=== PATIENT | male | born 1975 | race Caucasian/White ===

== ENCOUNTER 2016-09-28 21:47 | Emergency (ER) | payer OTHER ==
[2016-09-28 22:16] VITALS: BMI 38.0
[2016-09-28 22:20] VITALS: BP 134/90; PULSE 85; RESP 18; TEMP 98.1; O2SAT 96
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
[2016-09-28] MEDS ORDERED: Lidocaine 1% Inj (20ml) IJ STA (22:27)
[2016-09-28] MEDS ORDERED: Tmp-Smz 800 mg-160 mg DS Tab PO STA (22:27)
== END 2016-09-28 23:21 | disposition home or self-care (01) ==
LOC: ED 21:47
DX: L03.011 Cellulitis of right finger (principal)

== ENCOUNTER 2017-04-23 14:24 | Emergency (ER) | payer OTHER ==
[2017-04-23 14:24] VITALS: BMI 38.0
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
[2017-04-23 14:37] VITALS: TEMP 98.7
[2017-04-23 14:50] LABS: BASO # 0.01 K/mm3 (0.0-2.0); BASO % 0.1 % (0.0-3.0); EOS # 0.1 (0.0-0.7); EOS % 1.9 % (1.5-5.0); GRAN # 4.9 (1.4-6.5); GRAN % 65.5 % (50.0-68.0); HEMATOCRIT 45.9 % (42.0-52.0); MEAN CELL VOLUME 88.1 fl (80.0-105.0); MEAN CORPUSCULAR HEMOGLOBIN 31.1 pg (25.0-35.0); MEAN CORPUSCULAR HGB CONC 35.3 g/dl (31.0-37.0); MEAN PLATELET VOLUME 10.9 fl (7.0-11.0); MONO # 0.5 (0.1-0.6); MONO % 6.5 % (1.0-6.0); RED CELL DISTRIBUTION WIDTH 12.6 % (11.5-14.5); WHITE BLOOD COUNT 7.5 10^3/ul (4.5-11.0)
[2017-04-23 15:08] LABS: ALB/GLOB RATIO 1.3 (1.1-1.8); ALKALINE PHOSPHATASE 91 U/L (38-126); ALT/SGPT 54 U/L (7-56); AST/SGOT 23 U/L (17-59); BILIRUBIN,TOTAL 0.7 mg/dL (0.2-1.3); BLOOD UREA NITROGEN 15 mg/dL (7-21); CALCIUM 9.9 mg/dL (8.4-10.5); CARBON DIOXIDE 30 mmol/L (21-33); CHLORIDE 99 mmol/L (98-107); GFR AFRICAN-AMERICAN > 60; GLUCOSE,RANDOM 335 mg/dL (70-110); MAGNESIUM 1.5 mg/dL (1.7-2.2); POTASSIUM 4.1 mmol/L (3.6-5.0); SODIUM 138 mmol/L (132-148); TOTAL PROTEIN 7.7 g/dL (5.8-8.3)
--- NOTE | 2017-04-23 15:11 | RAD ---
HISTORY: cp COMPARISON: 06/18/2015 FINDINGS: LUNGS: No active pulmonary disease. PLEURA: No significant pleural effusion identified, no pneumothorax apparent. CARDIOVASCULAR: Normal. OSSEOUS STRUCTURES: No significant abnormalities. VISUALIZED UPPER ABDOMEN: Normal. OTHER FINDINGS: None. IMPRESSION: No active disease.
[2017-04-23 15:17] LABS: D DIMER < 200 ng/mL (0-243); INR 0.99 (0.93-1.08); PARTIAL THROMBOPLASTIN TIME 31.9 Seconds (25.1-36.5)
[2017-04-23 15:33] LABS: TROPONIN I < 0.01 ng/mL
[2017-04-23] MEDS ORDERED: Magnesium Sulfate 1 gm in D5W 1 GM/100 ML BAG IVPB ONE (17:05)
[2017-04-23 19:32] VITALS: BP 118/74; PULSE 74; RESP 18; O2SAT 98
--- NOTE | 2017-04-24 19:19 | CARD ---
APPROVED REPORT EKG Measurement Heart [id number] <Conclusion> Sinus rhythm with fusion complexes Otherwise normal ECG
== END 2017-04-23 19:10 | disposition home or self-care (01) ==
LOC: ED 14:24
DX: R07.9 Chest pain, unspecified (principal); E11.9 Type 2 diabetes mellitus without complications; I48.91 Unspecified atrial fibrillation; Z87.891 Personal history of nicotine dependence
CPT/HCPCS: 71010; 80053; 82550; 83615; 83735; 83880; 84484; 85025; 85378; 85610; 85730; 93005; 96365; 99285; J3475

== ENCOUNTER 2017-09-02 17:00 | Observation (INO) | payer OTHER ==
[2017-09-02 17:00] VITALS: BMI 38.0
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
--- NOTE | 2017-09-02 17:50 | RAD ---
HISTORY: chest pain, sob COMPARISON: 04/23/2017 FINDINGS: LUNGS: No active pulmonary disease. PLEURA: No significant pleural effusion identified, no pneumothorax apparent. CARDIOVASCULAR: Normal. OSSEOUS STRUCTURES: No significant abnormalities. VISUALIZED UPPER ABDOMEN: Normal. OTHER FINDINGS: None. IMPRESSION: No active disease.
[2017-09-02 17:53] LABS: VENOUS BLOOD GAS BASE EXCESS 0.9 mmol/L (0.0-2.0); VENOUS BLOOD GAS PO2 38 mm/Hg (30-55); VENOUS BLOOD PH 7.34 (7.32-7.43)
[2017-09-02 17:54] LABS: EOS # 0.1 (0.0-0.7); EOS % 0.6 % (1.5-5.0); GRAN # 7.32 (1.4-6.5); HEMOGLOBIN 16.1 g/dL (14.0-18.0); LYMPH # 0.6 (1.2-3.4); LYMPH % 6.9 % (22.0-35.0); MEAN CELL VOLUME 86.3 fl (80.0-105.0); MEAN CORPUSCULAR HEMOGLOBIN 30.2 pg (25.0-35.0); MEAN PLATELET VOLUME 10.6 fl (7.0-11.0); MONO # 0.2 (0.1-0.6); MONO % 2.5 % (1.0-6.0); RBC 5.33 10^6/uL (3.5-6.1); WHITE BLOOD COUNT 8.1 10^3/ul (4.5-11.0)
[2017-09-02 18:06] LABS: INR 1.06 (0.93-1.08); PARTIAL THROMBOPLASTIN TIME 29.1 Seconds (25.1-36.5); PROTHROMBIN TIME 12.1 SECONDS (9.4-12.5)
[2017-09-02 18:08] LABS: ALB/GLOB RATIO 1.3 (1.1-1.8); ALBUMIN 4.4 g/dL (3.0-4.8); ALT/SGPT 57 U/L (7-56); AST/SGOT 28 U/L (17-59); BLOOD UREA NITROGEN 18 mg/dL (7-21); CALCIUM 8.8 mg/dL (8.4-10.5); GFR AFRICAN-AMERICAN > 60; GFR NON-AFRICAN AMERICAN > 60
[2017-09-02 18:14] LABS: TROPONIN I < 0.01 ng/mL
[2017-09-02] MEDS ORDERED: Magnesium Oxide 400 mg Tab UD PO STA (18:15)
[2017-09-02 18:25] LABS: B-TYPE NATRIURETIC PEPTIDE < 11.1 pg/mL (0-450)
[2017-09-02] MEDS ORDERED: Sodium Chloride 0.9% 1,000 ML IV STA (19:05)
[2017-09-02] MEDS ORDERED: Sodium Chloride 0.45% 1,000 ML IV SCH (21:00)
[2017-09-03] MEDS: Insulin Reg-HIGH-Coverage SC SCH ×3 (01:05→12:56)
[2017-09-03 04:15] VITALS: O2SAT 95
[2017-09-03 06:56] LABS: PH,URINE 5.5 (4.7-8.0); URINE BILIRUBIN NEGATIVE (NEGATIVE); URINE BLOOD MODERATE (NEGATIVE); URINE GLUCOSE (UA) >=1000 mg/dL (NEGATIVE); URINE LEUKOCYTE ESTERASE NEGATIVE Leu/uL (NEGATIVE); URINE PROTEIN NEGATIVE mg/dL (<30 mg/dL); URINE UROBILINOGEN 0.2 E.U./dL (<1 E.U./dL)
[2017-09-03 06:58] LABS: URINE APPEARANCE CLOUDY (CLEAR); URINE COLOR YELLOW (YELLOW)
[2017-09-03 07:30] LABS: URINE BACTERIA FEW (NEG); URINE WBC 0 - 2 /hpf (0-6)
[2017-09-03 07:40] LABS: HEMOGLOBIN 14.8 g/dL (14.0-18.0); MEAN CELL VOLUME 85.7 fl (80.0-105.0); MEAN CORPUSCULAR HEMOGLOBIN 29.5 pg (25.0-35.0); MEAN CORPUSCULAR HGB CONC 34.4 g/dl (31.0-37.0); MEAN PLATELET VOLUME 10.7 fl (7.0-11.0); RBC 5.02 10^6/uL (3.5-6.1); RED CELL DISTRIBUTION WIDTH 13.2 % (11.5-14.5); WHITE BLOOD COUNT 5.3 10^3/ul (4.5-11.0)
[2017-09-03 07:59] LABS: TROPONIN I < 0.01 ng/mL
[2017-09-03 08:08] LABS: ALB/GLOB RATIO 1.3 (1.1-1.8); ALBUMIN 3.7 g/dL (3.0-4.8); ALT/SGPT 50 U/L (7-56); AST/SGOT 22 U/L (17-59); BLOOD UREA NITROGEN 14 mg/dL (7-21); CALCIUM 8.2 mg/dL (8.4-10.5); GFR AFRICAN-AMERICAN > 60; GFR NON-AFRICAN AMERICAN > 60
--- NOTE | 2017-09-03 08:37 | HP ---
HISTORY OF PRESENT ILLNESS: He comes in to the emergency room with a history of sharp right chest pain and the blood sugar was 265. It worsens and it goes away. He has had palpitations. He has also had nauseousness. He cannot eat. He has been drinking some now. He is having palpitations, shortness of breath, lightheadedness and nauseousness. No smoking. No drinking. He did have a past history of substance abuse, 17 years ago. PAST MEDICAL HISTORY: Includes atrial fibrillation with Effient, diabetes, hypertension, kidney stones. He had substance abuse on 02/12/2002. Appendectomy, 8 years old. FAMILY HISTORY: No known family history. SOCIAL HISTORY: He is a former smoker. No alcohol. Quit drugs, used heroin a long time ago. ALLERGIES: NO KNOWN DRUG ALLERGIES. MEDICATIONS: He took Zestril and . REVIEW OF SYSTEMS: No acute vision or hearing changes. No fevers. No night sweats. There is shortness of breath. There is chest pain. There is palpitation. No cough. He has nauseousness. No abdominal pain, diarrhea or vomiting. There is lightheadedness. No skin lesions. PHYSICAL EXAMINATION: VITAL SIGNS: He has a 99.8 temp, 104 pulse, 18 respiratory rate, 118/67 blood pressure and 98% O2 sat on room air. GENERAL: He is alert and oriented x3, a little bit lethargic, sedated, now feeling low. Blood sugar is 249. HEENT: His head is atraumatic, normocephalic. Extraocular muscles are intact. Pupils equal, reactive to light and accommodation. Throat is moist. NECK: Supple. Thyroid midline. No palpable appreciable lymphadenopathy. HEART: Regular rate. Normal S1 and S2. LUNGS: Decreased breath sounds, but clear to auscultation bilaterally. ABDOMEN: Soft, nontender. Positive bowel sounds. EXTREMITIES: Have no edema. NEUROLOGIC: GCS is 15. Cranial nerves II through XII grossly intact. Speech is normal. SKIN: Warm and dry. PSYCHIATRIC: Alert and oriented x3. LABORATORY DATA: He had 8.1 white count, 16.1 hemoglobin, 46 hematocrit with 249 platelets. 1.06 INR. Lactate is 1.5, . He has a 136 sodium, potassium 3.9, BUN 18, creatinine 0.8, GFR is greater than 60, sugar is 249, calcium is 8.8, magnesium 1.5, total bili is 0.8. AST is 28, ALT is , alk phos is 89, lactate dehydrogenase is 387, total creatine kinase is 82. Troponin I is less than 0.01. BNP is less than Total protein 7.6, albumin is 4.4, globulin is 3.2. Chest x-ray was clear. IMPRESSION AND PLAN: He has a consult with Cardiology, he will be on IV fluids. He will be on insulin coverage. He will put back on his glyburide and Zestril. He has a heart-healthy diet. I am also going to give him some Zofran get some nauseousness. We will check his troponins x2 more and in the next 24 hours. He is on observation status and he is here for shortness of breath and chest pain. Noe Rojas DO MTDKira
--- NOTE | 2017-09-03 08:42 | CARD ---
APPROVED REPORT EKG Measurement Heart [id number] <Conclusion> Sinus tachycardia Nonspecific T wave abnormality
[2017-09-03 12:58] VITALS: BP 101/61; PULSE 89
[2017-09-03 13:23] VITALS: RESP 20; TEMP 98.6
--- NOTE | 2017-09-03 15:33 | CON ---
DATE: 09/03/2017 CARDIOLOGY CONSULTATION HISTORY OF PRESENT ILLNESS: The patient is chest pain free now. The patient presented with right-sided pleuritic like sharp chest discomfort, which has resolved. The patient suffers from diabetes mellitus and hypertension. No previous cardiac history is noted. SOCIAL HISTORY: The patient does not smoke. FAMILY HISTORY: He has no family history for CAD. REVIEW OF SYSTEMS: A 14-point review of systems is reviewed. No cardiac symptomatology is noted. PHYSICAL EXAMINATION: VITAL SIGNS: Blood pressure is 118/74, the heart rates in the 90s. NECK: Negative JVD. LUNGS: Without rales. HEART: Reveals S1, S2. EXTREMITIES: Without edema. EKG is unremarkable. LABORATORY DATA: Troponins are negative x2. Glucose is 233. Hemoglobin is 14.8. IMPRESSION: 1. Atypical chest pain. 2. No evidence for acute coronary syndrome. 3. Diabetes mellitus. 4. Hypertension. PLAN: Given these findings, from a cardiac perspective, the patient can be discharged. Given his cardiac risk factors, we will arrange for an outpatient stress test later on this week, which the patient is agreeable to. Karlos Christian MD
--- NOTE | 2017-09-04 06:51 | DS ---
CHIEF COMPLAINT: I saw Alba resting comfortably this morning. There is no chest pain or shortness of breath, and he slept well. He has no complaints. He is eating well. PHYSICAL EXAMINATION: VITAL SIGNS: Temperature , 94 pulse, 118/74 blood pressure, 18 respiratory rate, 95% to 100% O2 sat on room air. HEENT: Head is atraumatic and normocephalic. HEART: Regular rate. LUNGS: Clear to auscultation. ABDOMEN: Soft, obese, nontender. EXTREMITIES: No edema. MEDICATIONS: He is currently on insulin coverage, IV fluids, Zestril and Zofran. LABORATORY DATA: He has 5.3 white count, 14.8 hemoglobin, 43 hematocrit with 224 platelets. INR is 1.06. Lactate of 1.5, pH is 7.34. VBG, O2 is 70.6. Sodium 137, potassium of 3.5. I gave him a potassium tab to take today. BUN is 40, creatinine 0.7. GFR is greater than 60. Old blood sugars are 233 and 217. Calcium is 8.2, total bili is 0.7, AST is 22, ALT is 50, alk phos is 78, with troponin of less than 0.01, and total protein 6.7. ASSESSMENT AND PLAN: I discussed with Dr. Christian, the air antisubmarine officer. He can be discharged. He is going to follow up in the office with Dr. Rojas. He might be set up for an outpatient stress test with Dr. Christian to see what he wants to do. We will continue with the glyburide and lisinopril. I am going to increase the glyburide to 5 mg since his blood sugar is still high. I discussed the good diet with him, low sugar, low salt. Lose some weight and exercise. We will see how he does. I would like to see him in the office in a week. He was here for chest pain and observation. Noe Rojas DO D 09/03/2017 8:23:33 MTDD
== END 2017-09-03 17:52 | disposition home or self-care (01) ==
LOC: ED 17:00 → ERH 18:19 → 2RSO 09-03 00:29
PROVIDERS: ADMIT Family Medicine; ATTEND Family Medicine
DX: R07.89 Other chest pain (principal); E11.9 Type 2 diabetes mellitus without complications; I10 Essential (primary) hypertension; I48.91 Unspecified atrial fibrillation; Z87.442 Personal history of urinary calculi; Z87.891 Personal history of nicotine dependence
CPT/HCPCS: 36415; 71045; 80053; 81001; 82550; 82803; 82948; 83615; 83735; 83880; 84484; 85025; 85027; 85610; 85730; 93005; 99285; G0378; J7030; J7040

== ENCOUNTER 2018-09-20 00:41 | Inpatient (IN) | payer SELFPAY ==
[2018-09-20 00:48] VITALS: BMI 39.5
--- NOTE | 2018-09-20 00:49 | ED PDOC ---
Arrival/HPI - General Historian: Patient - History of Present Illness Narrative History of Present Illness (Text): 09/20/18 00:49 Patient is a 42 yo male with obesity, hypertension, T2DM, and paroxysmal Afib who presents with heart palpitations. Patient states that he was lying down on his couch around 11 PM when he suddenly felt his heart start to race. He states he has associated shortness of breath. He denies chest pain, diaphoresis, and nausea. He reports that similar episodes have happened to him in the past, about once per year. He says that he is only supposed to be taking a baby aspirin and glyburide. He adamantly denies alcohol and drug use and states he has been sober since 2001. Time/Duration: 1-3 hours Symptom Onset: Sudden Symptom Course: Unchanged <Ellen Olvera - Last Filed: 09/20/18 03:11> <Raleigh Michelle DO - Last Filed: 09/20/18 05:59> - General Chief Complaint: Chest Pain Time Seen by Provider: 09/20/18 00:49 Past Medical History - Provider Review Nursing Documentation Reviewed: Yes Primary Care Provider: Noe Rojas - Past History Past History: No Previous - Infectious Disease Hx of Infectious Diseases: None - Tetanus Immunization Tetanus Immunization: Unknown - Cardiac Hx Atrial Fibrillation: Yes - Pulmonary Hx Respiratory Disorders: No Hx Pneumonia: No (DENIES) - Neurological Hx Neurological Disorder: No - HEENT Hx HEENT Disorder: No - Renal Hx Renal Disorder: No Hx Kidney Stones: Yes - Endocrine/Metabolic Hx Endocrine Disorders: Yes Hx Diabetes Mellitus Type 2: Yes - Hematological/Oncological Hx Blood Disorders: No - Integumentary Hx Dermatological Disorder: No - Musculoskeletal/Rheumatological Hx Musculoskeletal Disorders: No Hx Falls: No - Gastrointestinal Hx Gastrointestinal Disorders: No - Genitourinary/Gynecological Hx Genitourinary Disorders: No - Psychiatric Hx Psychophysiologic Disorder: No Hx Substance Use: Yes (HEROIN, 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)) Other/Comment: SUBSTANCE ABUSE (SOBER FOR 17 YRS) - Past Surgical History Past Surgical History: Non-Contributing - Surgical History Hx Appendectomy: Yes - Anesthesia Hx Anesthesia: Yes Hx Anesthesia Reactions: No Hx Malignant Hyperthermia: No - Suicidal Assessment Feels Threatened In Home Enviroment: No <Ellen Olvera - Last Filed: 09/20/18 03:11> Family/Social History - Physician Review Nursing Documentation Reviewed: Yes Family/Social History: Unknown Family HX Smoking Status: Former Smoker Hx Alcohol Use: Yes (QUIT 17 YRS AGO) Hx Substance Use: Yes (HEROIN, 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)) Substance used: heroin Hx Substance Use Treatment: No <Ellen Olvera - Last Filed: 09/20/18 03:11> Allergies/Home Meds <Ellen Olvera - Last Filed: 09/20/18 03:11> <Raleigh Michelle DO - Last Filed: 09/20/18 05:59> Allergies/Adverse Reactions: Allergies No Known Allergies Allergy (Verified 09/20/18 00:48) Home Medications: Home Meds Medication Instructions Recorded Confirmed Lisinopril [Zestril] 2.5 mg PO DAILY 12/03/15 09/05/17 glyBURIDE [Micronase] 5 mg PO BID 04/23/17 09/05/17 Meclizine [Meclizine*] 25 mg PO BID PRN 09/05/17 09/05/17 Review of Systems - Review of Systems Constitutional: absent: Fatigue, Fevers Eyes: absent: Vision Changes ENT: absent: Hearing Changes Respiratory: SOB. absent: Cough Cardiovascular: Palpitations. absent: Chest Pain, Edema Gastrointestinal: absent: Abdominal Pain, Nausea, Vomiting Genitourinary Male: absent: Dysuria, Hematuria Musculoskeletal: absent: Arthralgias Skin: absent: Rash, Pruritis, Skin Lesions Neurological: absent: Headache, Dizziness, Focal Weakness Endocrine: absent: Diaphoresis Hemo/Lymphatic: absent: Adenopathy <Ellen Olvera - Last Filed: 09/20/18 03:11> Physical Exam Vital Signs Reviewed: Yes Temperature: Afebrile Blood Pressure: Normal Pulse: Tachycardic Respiratory Rate: Normal Appearance: Positive for: Non-Toxic Pain Distress: None Mental Status: Positive for: Alert and Oriented X 3 - Systems Exam Head: Present: Atraumatic, Normocephalic Pupils: Present: PERRL Extroacular Muscles: Present: EOMI Conjunctiva: Present: Normal Mouth: Present: Moist Mucous Membranes Respiratory/Chest: Present: Clear to Auscultation, Good Air Exchange. No: Respi ratory Distress, Accessory Muscle Use Cardiovascular: Present: Irregular Rhythm, Tachycardic Abdomen: No: Tenderness, Distention Lower Extremity: Present: Normal Inspection. No: Edema Neurological: Present: GCS=15, CN II-XII Intact, Speech Normal Skin: Present: Warm, Dry. No: Diaphoretic Psychiatric: Present: Alert, Oriented x 3, Normal Insight, Normal Concentration <Ellen Olvera - Last Filed: 09/20/18 03:11> Vital Signs Temp Pulse Resp BP Pulse Ox 09/20/18 02:56 141 H 105/53 L 09/20/18 02:39 133 H 116/63 09/20/18 01:25 96 H 18 112/55 L 97 09/20/18 01:22 98 H 18 97 09/20/18 01:13 147 H 96/68 L 09/20/18 00:48 97.8 F 145 H 18 107/67 95 <Raleigh Michelle DO - Last Filed: 09/20/18 05:59> Medical Decision Making ED Course and Treatment: 09/20/18 02:33 Patient briefly clinically improved following IV Cardizem but now again with feeling of palpitations/heart racing. 09/20/18 02:[address] Rojas who accepts patient to his service- admission to telemetry. Re-evaluation Time: 02:33 Reassessment Condition: Unchanged - Lab Interpretations I have reviewed the lab results: Yes Interpretation: No clinic. lab abnormalty - RAD Interpretation Narrative RAD Interpretations (Text): 09/20/18 02:32 CXR- unremarkable Radiology Orders: CXR [employer] Lifeguard: ED Physician - EKG Interpretation EKG Interpretation (Text): 09/20/18 01:15 Afib RVR Type: 12 lead EKG Comparison: Different from prev. EKG - Medication Orders Current Medication Orders: 09/20/18 01:15 NS 1L bolus Cardizem 20 mg IVP 09/20/18 02:29 Cardizem 30 mg PO <Ellen Olvera - Last Filed: 09/20/18 03:11> - Lab Interpretations Lab Results: Troponin I < 0.01 ng/mL 09/20/18 00:50 NT-Pro-B Natriuret Pep 24.3 pg/mL (0-450) 09/20/18 00:50 Total Bilirubin 0.6 mg/dL (0.2-1.3) 09/20/18 00:50 AST 29 U/L (17-59) 09/20/18 00:50 ALT 40 U/L (7-56) 09/20/18 00:50 Alkaline Phosphatase 102 U/L (38-126) 09/20/18 00:50 Total Protein 8.0 g/dL (5.8-8.3) 09/20/18 00:50 Albumin 4.2 g/dL (3.0-4.8) 09/20/18 00:50 Globulin 3.8 gm/dL 09/20/18 00:50 Albumin/Globulin Ratio 1.1 (1.1-1.8) 09/20/18 00:50 Urine Color Light yellow (YELLOW) 09/20/18 02:20 Urine Appearance Clear (CLEAR) 09/20/18 02:20 Urine pH 6.0 (4.7-8.0) 09/20/18 02:20 Ur Specific Wiseman 1.015 (1.005-1.035) 09/20/18 02:20 Urine Protein Negative mg/dL (<30 mg/dL) 09/20/18 02:20 Urine Glucose (UA) Negative mg/dL (NEGATIVE) 09/20/18 02:20 Urine Ketones Trace mg/dL (NEGATIVE) H 09/20/18 02:20 Urine Blood Small (NEGATIVE) H 09/20/18 02:20 Urine Nitrate Negative (NEGATIVE) 09/20/18 02:20 Urine Bilirubin Negative (NEGATIVE) 09/20/18 02:20 Urine Urobilinogen 0.2 E.U./dL (<1 E.U./dL) 09/20/18 02:20 Ur Leukocyte Esterase Negative Devonte/uL (NEGATIVE) 09/20/18 02:20 Urine RBC 1 - 3 /hpf (0-2) H 09/20/18 02:20 Urine WBC None /hpf (0-6) 09/20/18 02:20 Ur Epithelial Cells None /hpf (0-5) 09/20/18 02:20 Urine Bacteria Few /hpf (NONE) 09/20/18 02:20 - RAD Interpretation Radiology Orders: 09/20/18 01:06 CHEST PORTABLE [RAD] Stat - Medication Orders Current Medication Orders: Dextrose (Dextrose 50% Inj) 0 ml IV STAT PRN; Protocol PRN Reason: Hypoglycemia Protocol Enoxaparin Sodium (Lovenox) 120 mg SC Q12H ANYA; Protocol Last Admin: 09/20/18 05:27 Dose: 120 mg Subcutaneous Administrations Document 09/20/18 05:27 OO (Rec: 09/20/18 05:27 OO [facility] [id number] Injection Site MAR Injection Site Right Abdomen Charges for Administration # of Subcutaneous Administrations 1 diltiaZEM IVPB 100mg in NS (Cardizem 100mg In Ns) 100 mls @ 5 mls/hr IV .Q20H PRN; Protocol PRN Reason: TITRATE PER MD ORDER Last Admin: 09/20/18 03:40 Dose: 10 mls/hr Comments: titrated per md order eMAR Start Stop Document 09/20/18 03:40 LAC (Rec: 09/20/18 03:50 LAC [id number]) Intravenous Solution Start Date 09/20/18 Start Time 03:40 Dextrose (Dextrose 5% In Water 1000 Ml) 1,000 mls @ 0 mls/hr IV .Q0M PRN; Protocol PRN Reason: Hypoglycemia Protocol Insulin Human Regular (Humulin R Med) 0 units SC ACHS ANYA; Protocol Discontinued Medications Diltiazem HCl (Cardizem) 20 mg IVP STAT STA Stop: 09/20/18 01:14 Last Admin: 09/20/18 01:13 Dose: 20 mg IVP Administration Document 09/20/18 01:13 AD (Rec: 09/20/18 01:33 AD [facility] [id number] Charges for Administration # of IVP Administrations 1 MAR Pulse and Blood Pressure Document 09/20/18 01:13 AD (Rec: 09/20/18 01:33 AD [id number] Pulse Pulse Rate (60-90) 147 Blood Pressure Blood Pressure (100/60-150/90) 96/68 Diltiazem HCl (Cardizem) 30 mg PO STAT STA Stop: 09/20/18 02:14 Last Admin: 09/20/18 02:20 Dose: 30 mg Sodium Chloride (Sodium Chloride 0.9%) 1,000 mls @ 999 mls/hr IV .Q1H1M STA Stop: 09/20/18 02:06 Last Admin: 09/20/18 01:06 Dose: 999 mls/hr eMAR Start Stop Document 09/20/18 01:06 AD (Rec: 09/20/18 01:32 AD [id number] Intravenous Solution Start Date 09/20/18 Start Time 01:06 Sodium Chloride (Sodium Chloride 0.9%) 1,000 mls @ 999 mls/hr IV .Q1H1M STA Stop: 09/20/18 04:48 Last Admin: 09/20/18 03:48 Dose: 999 mls/hr eMAR Start Stop Document 09/20/18 03:48 AD (Rec: 09/20/18 03:57 AD [id number] Intravenous Solution Start Date 09/20/18 Start Time 03:48 <Raleigh Michelle DO - Last Filed: 09/20/18 05:59> - PA / [employer]CTOR / Resident Statement WALESKA has reviewed & agrees with the documentation as recorded. WALESKA has examined the patient and agrees with the treatment plan. <Raleigh Michelle DO - Last Filed: 09/20/18 05:59> Disposition/Present on Arrival - Present on Arrival Any Indicators Present on Arrival: No History of DVT/PE: No History of Uncontrolled Diabetes: No Urinary Catheter: No History Surgical Site Infection Following: None - Disposition Have Diagnosis and Disposition been Completed?: Yes Disposition Time: 02:54 Patient Plan: Admission, Telemetry <Ellen Olvera - Last Filed: 09/20/18 03:11> - Disposition Disposition Time: 02:30 <Raleigh Michelle DO - Last Filed: 09/20/18 05:59> - Disposition Diagnosis: Atrial fibrillation with RVR Disposition: HOSPITALIZED Condition: [facility] ED Critical Care Documentation - Critical Care Total Time (mins): 60 Documented critical care: time excludes all time spent performing seperately billable procedures. <Raleigh Michelle DO - Last Filed: 09/20/18 05:59>
[2018-09-20] MEDS ORDERED: Sodium Chloride 0.9% 1,000 ML IV STA ×2 (01:06→03:48)
[2018-09-20 01:35] LABS: FREE T4 1.08 ng/dL (0.78-2.19)
[2018-09-20 01:47] LABS: BASO # 0.02 K/mm3 (0.0-2.0); BASO % 0.2 % (0.0-3.0); EOS # 0.2 (0.0-0.7); EOS % 2.2 % (1.5-5.0); HEMOGLOBIN 15.7 g/dL (14.0-18.0); LYMPH # 2.5 (1.2-3.4); LYMPH % 26.2 % (22.0-35.0); MEAN CELL VOLUME 87.9 fl (80.0-105.0); MEAN CORPUSCULAR HEMOGLOBIN 29.6 pg (25.0-35.0); MEAN CORPUSCULAR HGB CONC 33.7 g/dl (31.0-37.0); MEAN PLATELET VOLUME 11.1 fl (7.0-11.0); MONO # 0.8 (0.1-0.6); MONO % 8.8 % (1.0-6.0); RBC 5.3 10^6/uL (3.5-6.1); RED CELL DISTRIBUTION WIDTH 13.1 % (11.5-14.5); WHITE BLOOD COUNT 9.4 10^3/uL (4.5-11.0)
[2018-09-20 01:50] LABS: T3 1.26 ng/mL (0.97-1.69)
[2018-09-20 02:10] LABS: B-TYPE NATRIURETIC PEPTIDE 24.3 pg/mL (0-450); TROPONIN I < 0.01 ng/mL
[2018-09-20 02:26] LABS: ALB/GLOB RATIO 1.1 (1.1-1.8); ALBUMIN 4.2 g/dL (3.0-4.8); ALT/SGPT 40 U/L (7-56); AST/SGOT 29 U/L (17-59); BLOOD UREA NITROGEN 18 mg/dL (7-21); CALCIUM 9.2 mg/dL (8.4-10.5); GFR NON-AFRICAN AMERICAN > 60
[2018-09-20 02:44] LABS: URINE BILIRUBIN NEGATIVE (NEGATIVE); URINE BLOOD SMALL (NEGATIVE); URINE GLUCOSE (UA) NEGATIVE (NEGATIVE); URINE LEUKOCYTE ESTERASE NEGATIVE Leu/uL (NEGATIVE); URINE PROTEIN NEGATIVE mg/dL (<30 mg/dL); URINE UROBILINOGEN 0.2 E.U./dL (<1 E.U./dL)
[2018-09-20] MEDS: diltiaZEM IVPB 100mg in NS 100 ML IV PRN ×3 (02:53→09:53)
[2018-09-20 03:03] LABS: URINE APPEARANCE CLEAR (CLEAR); URINE COLOR LIGHT YELLOW (YELLOW)
[2018-09-20 03:10] LABS: BARBITURATES, UR NEGATIVE (NEGATIVE); BENZODIAZEPINES, UR NEGATIVE (NEGATIVE); OPIATES, UR NEGATIVE (NEGATIVE); PHENCYCLIDINE, UR NEGATIVE (NEGATIVE)
[2018-09-20 03:51] LABS: URINE BACTERIA FEW /hpf
[2018-09-20] MEDS ORDERED: Dextrose 50% SYRINGE Inj (50 ml) IV PRN (04:11)
--- NOTE | 2018-09-20 04:13 | CP.PCM.HP ---
<Tyler Deshpande - Last Filed: 09/20/18 07:04> History of Present Illness - History of Present Illness History of Present Illness: ICU consult note Chief complaint: Shortness of breath and palpitations HPI: Patient is a 42 year old male with a past medical history of atrial fibrillation, DM, hypertension who presents with complains of shortness of breath and palpitations. Patient states these symptoms started right before he was about to fall asleep. Patient states at the time he was laying in bed relaxing then suddenly had similar symptoms he had in the past when he was in atrial fibrillation. As per patient he hadn't had these symptoms in over a year and as a result has decided to no loner take medications. States although he doesn't take prescribed medications he takes aspirin daily. Denies abdominal pain, nausea, vomiting, diarrhea, headache, chest pain. PMD: Dr. Rojas Community Service Director: Dr. 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 wheneh was [age] years old but since then has not Past medical history: DM, hypertension, atrial fibrillation Medications: in the past patient was on effient and zestril Family history: not significant Present on Admission - Present on Admission Any Indicators Present on Admission: No Review of Systems - Review of Systems All systems: reviewed and no additional remarkable complaints except (as stated in HPI) Past Patient History - Infectious Disease Hx of Infectious Diseases: None - Tetanus Immunizations Tetanus Immunization: Unknown - Past Medical History & Family History Past Medical History?: Yes - Past Social History Smoking Status: Former Smoker - CARDIAC Hx Atrial Fibrillation: Yes - PULMONARY Hx Respiratory Disorders: No Hx Pneumonia: No (DENIES) - NEUROLOGICAL Hx Neurological Disorder: No - HEENT Hx HEENT Problems: No - RENAL Hx Chronic Kidney Disease: No Hx Kidney Stones: Yes - ENDOCRINE/METABOLIC Hx Endocrine Disorders: Yes Hx Diabetes Mellitus Type 2: Yes - HEMATOLOGICAL/ONCOLOGICAL Hx Blood Disorders: No - INTEGUMENTARY Hx Dermatological Problems: No - MUSCULOSKELETAL/RHEUMATOLOGICAL Hx Musculoskeletal Disorders: No Hx Falls: No - GASTROINTESTINAL Hx Gastrointestinal Disorders: No - GENITOURINARY/GYNECOLOGICAL Hx Genitourinary Disorders: No - PSYCHIATRIC Hx Psychophysiologic Disorder: No Hx Substance Use: Yes (HEROIN, 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)) Other/Comment: SUBSTANCE ABUSE (SOBER FOR 17 YRS) - SURGICAL HISTORY Hx Appendectomy: Yes - ANESTHESIA Hx Anesthesia: Yes Hx Anesthesia Reactions: No Hx Malignant Hyperthermia: No Meds Allergies/Adverse Reactions: Allergies Allergy/AdvReac Type Severity Reaction Status Date / Time No Known Allergies Allergy Verified 09/20/18 00:48 Physical Exam - Constitutional Appears: Non-toxic - Head Exam Head Exam: ATRAUMATIC, NORMAL INSPECTION, NORMOCEPHALIC - Eye Exam Eye Exam: EOMI, Normal appearance - ENT Exam ENT Exam: Mucous Membranes Moist - Neck Exam Neck exam: Positive for: Normal Inspection - Respiratory Exam Respiratory Exam: Clear to Auscultation Bilateral, NORMAL BREATHING PATTERN - Cardiovascular Exam Cardiovascular Exam: Tachycardia, Irregular Rhythm - GI/Abdominal Exam GI & Abdominal Exam: Distended, Normal Bowel Sounds, Soft - Extremities Exam Extremities exam: Positive for: normal inspection. Negative for: pedal edema - Back Exam Back exam: NORMAL INSPECTION - Neurological Exam Neurological exam: Alert, CN II-XII Intact, Oriented x3 - Psychiatric Exam Psychiatric exam: Normal Affect, Normal Mood - Skin Skin Exam: Normal Color, Warm Results - Vital Signs Recent Vital Signs: Last Vital Signs Temp 97.8 F 09/20/18 00:48 Pulse 141 H 09/20/18 02:56 Resp 18 09/20/18 01:25 BP 105/53 L 09/20/18 02:56 Pulse Ox 97 09/20/18 01:25 - Labs Result Diagrams: 09/20/18 00:50 09/20/18 00:50 Labs: Laboratory Results - last 24 hr 09/20/18 09/20/18 09/20/18 00:50 00:50 00:50 WBC 9.4 RBC 5.30 Hgb 15.7 Hct 46.6 MCV 87.9 MCH 29.6 MCHC 33.7 RDW 13.1 Plt Count 268 MPV 11.1 H Neut % (Auto) 62.6 Lymph % (Auto) 26.2 Benzie % (Auto) 8.8 H Eos % (Auto) 2.2 Baso % (Auto) 0.2 Lymph # (Auto) 2.5 Benzie # (Auto) 0.8 H Eos # (Auto) 0.2 Baso # (Auto) 0.02 Absolute Neuts (auto) 5.89 Sodium 137 Potassium 4.0 Chloride 98 Carbon Dioxide 28 Anion Gap 16 BUN 18 Creatinine 1.0 Est GFR ( Amer) > 60 Est GFR (Non-Af Amer) > 60 Random Glucose 309 H* D Calcium 9.2 Magnesium 1.7 Total Bilirubin 0.6 AST 29 ALT 40 Alkaline Phosphatase 102 Lactate Dehydrogenase 551 Total Creatine Kinase 221 Troponin I < 0.01 NT-Pro-B Natriuret Pep 24.3 Total Protein 8.0 Albumin 4.2 Globulin 3.8 Albumin/Globulin Ratio 1.1 Free T4 1.08 Total T3 1.26 TSH 3rd Generation 7.16 H Urine Color Urine Appearance Urine pH Ur Specific [place] Urine Protein Urine Glucose (UA) Urine Ketones Urine Blood Urine Nitrate Urine Bilirubin Urine Urobilinogen Ur Leukocyte Esterase Urine RBC Urine WBC Ur Epithelial Cells Urine Bacteria Urine Opiates Screen Urine Methadone Screen Ur Barbiturates Screen Ur Phencyclidine Scrn Ur Amphetamines Screen U Benzodiazepines Scrn U Oth Cocaine Metabols U Cannabinoids Screen 09/20/18 09/20/18 02:20 02:20 WBC RBC Hgb Hct MCV MCH MCHC RDW Plt Count MPV Neut % (Auto) Lymph % (Auto) Benzie % (Auto) Eos % (Auto) Baso % (Auto) Lymph # (Auto) Benzie # (Auto) Eos # (Auto) Baso # (Auto) Absolute Neuts (auto) Sodium Potassium Chloride Carbon Dioxide Anion Gap BUN Creatinine Est GFR ( Amer) Est GFR (Non-Af Amer) Random Glucose Calcium Magnesium Total Bilirubin AST ALT Alkaline Phosphatase Lactate Dehydrogenase Total Creatine Kinase Troponin I NT-Pro-B Natriuret Pep Total Protein Albumin Globulin Albumin/Globulin Ratio Free T4 Total T3 TSH 3rd Generation Urine Color Light yellow Urine Appearance Clear Urine pH 6.0 Ur Specific [place] 1.015 Urine Protein Negative Urine Glucose (UA) Negative Urine Ketones Trace H Urine Blood Small H Urine Nitrate Negative Urine Bilirubin Negative Urine Urobilinogen 0.2 Ur Leukocyte Esterase Negative Urine RBC 1 - 3 H Urine WBC None Ur Epithelial Cells None Urine Bacteria Few Urine Opiates Screen Negative Urine Methadone Screen Negative Ur Barbiturates Screen Negative Ur Phencyclidine Scrn Negative Ur Amphetamines Screen Negative U Benzodiazepines Scrn Negative U Oth Cocaine Metabols Negative U Cannabinoids Screen Negative Assessment & Plan - Assessment and Plan (Free Text) Assessment: Patient is a 42 year old male with a past medical history of atrial fibrillation, DM, hypertension who presents with complains of shortness of breath and palpitations. Plan: Neurological -AAO x 3 Cardiovascular -Maintain MAP >65 -Cardizem drip -Lovenox 120 mg q12h -Troponin negative x 1, continue to trend along with EKGs Pulmonary -Maintain O2 sat >95% Endocrine -Insulin SC-Medium -HgA1C -perioperative educator -Maintain normothermia Renal -Maintain euvolemia -Replete electrolytes as needed Hematological -Lovenox for anticoagulation <[email or web address] - Last Filed: 09/20/18 21:56> Results - Vital Signs Recent Vital Signs: Last Vital Signs Temp 97.9 F 09/20/18 19:40 Pulse 79 09/20/18 21:06 Resp 18 09/20/18 19:40 BP 106/71 09/20/18 21:06 Pulse Ox 96 09/20/18 19:40 - Labs Result Diagrams: 09/20/18 00:50 09/20/18 00:50 Labs: Laboratory Results - last 24 hr 09/20/18 09/20/18 09/20/18 00:50 00:50 00:50 WBC 9.4 RBC 5.30 Hgb 15.7 Hct 46.6 MCV 87.9 MCH 29.6 MCHC 33.7 RDW 13.1 Plt Count 268 MPV 11.1 H Neut % (Auto) 62.6 Lymph % (Auto) 26.2 Benzie % (Auto) 8.8 H Eos % (Auto) 2.2 Baso % (Auto) 0.2 Lymph # (Auto) 2.5 Benzie # (Auto) 0.8 H Eos # (Auto) 0.2 Baso # (Auto) 0.02 Absolute Neuts (auto) 5.89 PT INR APTT D-Dimer, Quantitative Sodium 137 Potassium 4.0 Chloride 98 Carbon Dioxide 28 Anion Gap 16 BUN 18 Creatinine 1.0 Est GFR ( Amer) > 60 Est GFR (Non-Af Amer) > 60 POC Glucose (mg/dL) Random Glucose 309 H* D Hemoglobin A1c Calcium 9.2 Magnesium 1.7 Total Bilirubin 0.6 AST 29 ALT 40 Alkaline Phosphatase 102 Lactate Dehydrogenase 551 Total Creatine Kinase 221 Troponin I < 0.01 NT-Pro-B Natriuret Pep 24.3 Total Protein 8.0 Albumin 4.2 Globulin 3.8 Albumin/Globulin Ratio 1.1 Free T4 1.08 Total T3 1.26 TSH 3rd Generation 7.16 H Urine Color Urine Appearance Urine pH Ur Specific [place] Urine Protein Urine Glucose (UA) Urine Ketones Urine Blood Urine Nitrate Urine Bilirubin Urine Urobilinogen Ur Leukocyte Esterase Urine RBC Urine WBC Ur Epithelial Cells Urine Bacteria Urine Opiates Screen Urine Methadone Screen Ur Barbiturates Screen Ur Phencyclidine Scrn Ur Amphetamines Screen U Benzodiazepines Scrn U Oth Cocaine Metabols U Cannabinoids Screen 09/20/18 09/20/18 09/20/18 02:20 02:20 03:00 WBC RBC Hgb Hct MCV MCH MCHC RDW Plt Count MPV Neut % (Auto) Lymph % (Auto) Benzie % (Auto) Eos % (Auto) Baso % (Auto) Lymph # (Auto) Benzie # (Auto) Eos # (Auto) Baso # (Auto) Absolute Neuts (auto) PT INR APTT D-Dimer, Quantitative Sodium Potassium Chloride Carbon Dioxide Anion Gap BUN Creatinine Est GFR ( Amer) Est GFR (Non-Af Amer) POC Glucose (mg/dL) Random Glucose Hemoglobin A1c 11.1 H Calcium Magnesium Total Bilirubin AST ALT Alkaline Phosphatase Lactate Dehydrogenase Total Creatine Kinase Troponin I NT-Pro-B Natriuret Pep Total Protein Albumin Globulin Albumin/Globulin Ratio Free T4 Total T3 TSH 3rd Generation Urine Color Light yellow Urine Appearance Clear Urine pH 6.0 Ur Specific [place] 1.015 Urine Protein Negative Urine Glucose (UA) Negative Urine Ketones Trace H Urine Blood Small H Urine Nitrate Negative Urine Bilirubin Negative Urine Urobilinogen 0.2 Ur Leukocyte Esterase Negative Urine RBC 1 - 3 H Urine WBC None Ur Epithelial Cells None Urine Bacteria Few Urine Opiates Screen Negative Urine Methadone Screen Negative Ur Barbiturates Screen Negative Ur Phencyclidine Scrn Negative Ur Amphetamines Screen Negative U Benzodiazepines Scrn Negative U Oth Cocaine Metabols Negative U Cannabinoids Screen Negative 09/20/18 09/20/18 09/20/18 05:12 07:19 08:00 WBC RBC Hgb Hct MCV MCH MCHC RDW Plt Count MPV Neut % (Auto) Lymph % (Auto) Benzie % (Auto) Eos % (Auto) Baso % (Auto) Lymph # (Auto) Benzie # (Auto) Eos # (Auto) Baso # (Auto) Absolute Neuts (auto) PT INR APTT D-Dimer, Quantitative Sodium Potassium Chloride Carbon Dioxide Anion Gap BUN Creatinine Est GFR ( Amer) Est GFR (Non-Af Amer) POC Glucose (mg/dL) 313 H 321 H Random Glucose Hemoglobin A1c Calcium Magnesium Total Bilirubin AST ALT Alkaline Phosphatase Lactate Dehydrogenase Total Creatine Kinase Troponin I < 0.01 NT-Pro-B Natriuret Pep Total Protein Albumin Globulin Albumin/Globulin Ratio Free T4 Total T3 TSH 3rd Generation Urine Color Urine Appearance Urine pH Ur Specific [place] Urine Protein Urine Glucose (UA) Urine Ketones Urine Blood Urine Nitrate Urine Bilirubin Urine Urobilinogen Ur Leukocyte Esterase Urine RBC Urine WBC Ur Epithelial Cells Urine Bacteria Urine Opiates Screen Urine Methadone Screen Ur Barbiturates Screen Ur Phencyclidine Scrn Ur Amphetamines Screen U Benzodiazepines Scrn U Oth Cocaine Metabols U Cannabinoids Screen 09/20/18 09/20/18 09/20/18 08:00 08:00 10:55 WBC RBC Hgb Hct MCV MCH MCHC RDW Plt Count MPV Neut % (Auto) Lymph % (Auto) Benzie % (Auto) Eos % (Auto) Baso % (Auto) Lymph # (Auto) Benzie # (Auto) Eos # (Auto) Baso # (Auto) Absolute Neuts (auto) PT 11.0 INR 0.97 APTT 41.9 H D-Dimer, Quantitative < 200 Sodium Potassium Chloride Carbon Dioxide Anion Gap BUN Creatinine Est GFR ( Amer) Est GFR (Non-Af Amer) POC Glucose (mg/dL) 222 H Random Glucose Hemoglobin A1c Calcium Magnesium Total Bilirubin AST ALT Alkaline Phosphatase Lactate Dehydrogenase Total Creatine Kinase Troponin I NT-Pro-B Natriuret Pep Total Protein Albumin Globulin Albumin/Globulin Ratio Free T4 Total T3 TSH 3rd Generation Urine Color Urine Appearance Urine pH Ur Specific [place] Urine Protein Urine Glucose (UA) Urine Ketones Urine Blood Urine Nitrate Urine Bilirubin Urine Urobilinogen Ur Leukocyte Esterase Urine RBC Urine WBC Ur Epithelial Cells Urine Bacteria Urine Opiates Screen Urine Methadone Screen Ur Barbiturates Screen Ur Phencyclidine Scrn Ur Amphetamines Screen U Benzodiazepines Scrn U Oth Cocaine Metabols U Cannabinoids Screen 09/20/18 09/20/18 09/20/18 13:00 16:05 21:23 WBC RBC Hgb Hct MCV MCH MCHC RDW Plt Count MPV Neut % (Auto) Lymph % (Auto) Benzie % (Auto) Eos % (Auto) Baso % (Auto) Lymph # (Auto) Benzie # (Auto) Eos # (Auto) Baso # (Auto) Absolute Neuts (auto) PT INR APTT D-Dimer, Quantitative Sodium Potassium Chloride Carbon Dioxide Anion Gap BUN Creatinine Est GFR ( Amer) Est GFR (Non-Af Amer) POC Glucose (mg/dL) 240 H 295 H Random Glucose Hemoglobin A1c Calcium Magnesium Total Bilirubin AST ALT Alkaline Phosphatase Lactate Dehydrogenase Total Creatine Kinase Troponin I < 0.01 NT-Pro-B Natriuret Pep Total Protein Albumin Globulin Albumin/Globulin Ratio Free T4 Total T3 TSH 3rd Generation Urine Color Urine Appearance Urine pH Ur Specific [place] Urine Protein Urine Glucose (UA) Urine Ketones Urine Blood Urine Nitrate Urine Bilirubin Urine Urobilinogen Ur Leukocyte Esterase Urine RBC Urine WBC Ur Epithelial Cells Urine Bacteria Urine Opiates Screen Urine Methadone Screen Ur Barbiturates Screen Ur Phencyclidine Scrn Ur Amphetamines Screen U Benzodiazepines Scrn U Oth Cocaine Metabols U Cannabinoids Screen Attending/Attestation - Attestation I have personally seen and examined this patient.: Yes I have fully participated in the care of the patient.: Yes I have reviewed all pertinent clinical information: Yes
[2018-09-20] MEDS: Enoxaparin 120 mg Syringe SC SCH ×2 (05:27→16:57)
[2018-09-20] MEDS: Insulin Reg-MEDIUM-Coverage SC SCH ×4 (08:18→21:25)
[2018-09-20 08:28] LABS: INR 0.97; PARTIAL THROMBOPLASTIN TIME 41.9 Seconds (26.9-38.3)
--- NOTE | 2018-09-20 08:28 | RAD ---
Date of service: 09/20/2018 HISTORY: chest pain COMPARISON: 09/02/2017. FINDINGS: LUNGS: The lungs are well inflated and clear. PLEURA: No pleural effusions or pneumothorax. CARDIOVASCULAR: The heart is normal in size. No aortic atherosclerotic calcifications present. OSSEOUS STRUCTURES: Within normal limits for the patient's age. VISUALIZED UPPER ABDOMEN: Normal. OTHER FINDINGS: None. IMPRESSION: No active pulmonary disease.
--- NOTE | 2018-09-20 16:16 | CP.CCUPN ---
<JaymeNiko ramos R - Last Filed: 09/20/18 16:59> CCU Subjective - Physician Review Subjective (Free Text): PGY-2 ICU progess note for [place] Patient resting comfortable in bed. Denies pain or discomfort. Denies cp, palpitations, bleeding, abd pain, n/v, fevers. Tolerating diet. 09/20/18 16:12 Critical Care Time Spent (in minutes): 35 CCU Objective - Vital Signs / Intake & Output Vital Signs (Last 4 hours): Vital Signs Pulse BP 09/20/18 13:17 79 123/51 L Intake and Output (Last 8hrs): Intake & Output 09/20/18 09/20/18 09/20/18 06:59 14:59 22:59 Intake Total 1170 70 Output Total 0 Balance 1170 70 Weight 267 lb Intake: IV 1170 70 Right Antecubital 1000 Right Hand 100 Output: Stool 0 - Physical Exam Head: Positive for: Atraumatic, Normocephalic Pupils: Positive for: PERRL Extroacular Muscles: Positive for: EOMI Conjunctiva: Positive for: Normal Mouth: Positive for: Moist Mucous Membranes Neck: Positive for: Normal Range of Motion Respiratory/Chest: Positive for: Clear to Auscultation, Good Air Exchange. Negative for: Respiratory Distress, Accessory Muscle Use Cardiovascular: Positive for: Regular Rate and Rhythm, Normal S1, S2. Negative for: Murmurs Abdomen: Negative for: Tenderness, Distention Upper Extremity: Positive for: Normal Inspection. Negative for: Edema Lower Extremity: Positive for: Normal Inspection. Negative for: Edema Neurological: Positive for: GCS=15, CN II-XII Intact, Speech Normal Skin: Positive for: Warm, Dry. Negative for: Diaphoretic Psychiatric: Positive for: Alert, Oriented x 3, Normal Insight, Normal Concentration - Medications Active Medications: Active Medications Generic Name Dose Route Start Last Admin Trade Name Freq PRN Reason Stop Dose Admin Dextrose 0 ml 09/20/18 04:11 Dextrose 50% Inj IV STAT PRN Hypoglycemia Protocol Protocol Diltiazem HCl 60 mg 09/20/18 10:00 09/20/18 13:17 Cardizem PO 60 mg QID ANYA Administration Enoxaparin Sodium 120 mg 09/20/18 04:15 09/20/18 05:27 Lovenox SC 120 mg Q12H ANYA Administration Protocol Glyburide 5 mg 09/20/18 17:00 Micronase PO BIDWM ANYA diltiaZEM IVPB 100mg in NS 100 mls @ 5 mls/hr 09/20/18 02:39 09/20/18 12:30 Cardizem 100mg In Ns IV 0 mg/hr .Q20H PRN 0 mls/hr TITRATE PER MD ORDER Titration Protocol 5 MG/HR Dextrose 1,000 mls @ 0 mls/hr 09/20/18 04:11 Dextrose 5% In Water 1000 Ml IV .Q0M PRN Hypoglycemia Protocol Protocol Per Protocol Insulin Human Regular 0 units 09/20/18 16:30 Humulin R Med SC [facility] Protocol Lisinopril 2.5 mg 09/21/18 10:00 Zestril PO DAILY ANYA - Patient Studies Lab Studies: Lab Studies 09/20/18 09/20/18 09/20/18 Range/Units 13:00 10:55 08:00 WBC (4.5-11.0) 10^3/uL RBC (3.5-6.1) 10^6/uL Hgb (14.0-18.0) g/dL Hct (42.0-52.0) % MCV (80.0-105.0) fl MCH (25.0-35.0) pg MCHC (31.0-37.0) g/dl RDW (11.5-14.5) % Plt Count (120.0-450.0) 10^3/uL MPV (7.0-11.0) fl Neut % (Auto) (50.0-68.0) % Lymph % (Auto) (22.0-35.0) % [place] % (Auto) (1.0-6.0) % Eos % (Auto) (1.5-5.0) % Baso % (Auto) (0.0-3.0) % Lymph # (Auto) (1.2-3.4) [place] # (Auto) (0.1-0.6) Eos # (Auto) (0.0-0.7) Baso # (Auto) (0.0-2.0) K/mm3 Absolute Neuts (auto) (1.4-6.5) PT (9.4-12.5) SECONDS INR APTT (26.9-38.3) Seconds D-Dimer, Quantitative < 200 (0-243) ng/mlDDU Sodium (132-148) mmol/L Potassium (3.6-5.0) mmol/L Chloride (98-107) mmol/L Carbon Dioxide (21-33) mmol/L Anion Gap (10-20) BUN (7-21) mg/dL Creatinine (0.8-1.5) mg/dl Est GFR ( Amer) Est GFR (Non-Af Amer) POC Glucose (mg/dL) 222 H (65-110) mg/dL Random Glucose (70-110) mg/dL Hemoglobin A1c (4.2-6.5) % Calcium (8.4-10.5) mg/dL Magnesium (1.7-2.2) mg/dL Total Bilirubin (0.2-1.3) mg/dL AST (17-59) U/L ALT (7-56) U/L Alkaline Phosphatase (38-126) U/L Lactate Dehydrogenase (333-699) U/L Total Creatine Kinase (35-230) U/L Troponin I < 0.01 ng/mL NT-Pro-B Natriuret Pep (0-450) pg/mL Total Protein (5.8-8.3) g/dL Albumin (3.0-4.8) g/dL Globulin gm/dL Albumin/Globulin Ratio (1.1-1.8) Free T4 (0.78-2.19) ng/dL Total T3 (0.97-1.69) ng/mL TSH 3rd Generation (0.46-4.68) mIU/mL Urine Color (YELLOW) Urine Appearance (CLEAR) Urine pH (4.7-8.0) Ur Specific [place] (1.005-1.035) Urine Protein (<30 mg/dL) mg/dL Urine Glucose (UA) (NEGATIVE) mg/dL Urine Ketones (NEGATIVE) mg/dL Urine Blood (NEGATIVE) Urine Nitrate (NEGATIVE) Urine Bilirubin (NEGATIVE) Urine Urobilinogen (<1 E.U./dL) E.U./dL Ur Leukocyte Esterase (NEGATIVE) [place]/uL Urine RBC (0-2) /hpf Urine WBC (0-6) /hpf Ur Epithelial Cells (0-5) /hpf Urine Bacteria (NONE) /hpf Urine Opiates Screen (NEGATIVE) Urine Methadone Screen (NEGATIVE) Ur Barbiturates Screen (NEGATIVE) Ur Phencyclidine Scrn (NEGATIVE) Ur Amphetamines Screen (NEGATIVE) U Benzodiazepines Scrn (NEGATIVE) U Oth Cocaine Metabols (NEGATIVE) U Cannabinoids Screen (NEGATIVE) 09/20/18 09/20/18 09/20/18 Range/Units 08:00 08:00 07:19 WBC (4.5-11.0) 10^3/uL RBC (3.5-6.1) 10^6/uL Hgb (14.0-18.0) g/dL Hct (42.0-52.0) % MCV (80.0-105.0) fl MCH (25.0-35.0) pg MCHC (31.0-37.0) g/dl RDW (11.5-14.5) % Plt Count (120.0-450.0) 10^3/uL MPV (7.0-11.0) fl Neut % (Auto) (50.0-68.0) % Lymph % (Auto) (22.0-35.0) % [place] % (Auto) (1.0-6.0) % Eos % (Auto) (1.5-5.0) % Baso % (Auto) (0.0-3.0) % Lymph # (Auto) (1.2-3.4) [place] # (Auto) (0.1-0.6) Eos # (Auto) (0.0-0.7) Baso # (Auto) (0.0-2.0) K/mm3 Absolute Neuts (auto) (1.4-6.5) PT 11.0 (9.4-12.5) SECONDS INR 0.97 APTT 41.9 H (26.9-38.3) Seconds D-Dimer, Quantitative (0-243) ng/mlDDU Sodium (132-148) mmol/L Potassium (3.6-5.0) mmol/L Chloride (98-107) mmol/L Carbon Dioxide (21-33) mmol/L Anion Gap (10-20) BUN (7-21) mg/dL Creatinine (0.8-1.5) mg/dl Est GFR ( Amer) Est GFR (Non-Af Amer) POC Glucose (mg/dL) 321 H (65-110) mg/dL Random Glucose (70-110) mg/dL Hemoglobin A1c (4.2-6.5) % Calcium (8.4-10.5) mg/dL Magnesium (1.7-2.2) mg/dL Total Bilirubin (0.2-1.3) mg/dL AST (17-59) U/L ALT (7-56) U/L Alkaline Phosphatase (38-126) U/L Lactate Dehydrogenase (333-699) U/L Total Creatine Kinase (35-230) U/L Troponin I < 0.01 ng/mL NT-Pro-B Natriuret Pep (0-450) pg/mL Total Protein (5.8-8.3) g/dL Albumin (3.0-4.8) g/dL Globulin gm/dL Albumin/Globulin Ratio (1.1-1.8) Free T4 (0.78-2.19) ng/dL Total T3 (0.97-1.69) ng/mL TSH 3rd Generation (0.46-4.68) mIU/mL Urine Color (YELLOW) Urine Appearance (CLEAR) Urine pH (4.7-8.0) Ur Specific [place] (1.005-1.035) Urine Protein (<30 mg/dL) mg/dL Urine Glucose (UA) (NEGATIVE) mg/dL Urine Ketones (NEGATIVE) mg/dL Urine Blood (NEGATIVE) Urine Nitrate (NEGATIVE) Urine Bilirubin (NEGATIVE) Urine Urobilinogen (<1 E.U./dL) E.U./dL Ur Leukocyte Esterase (NEGATIVE) [place]/uL Urine RBC (0-2) /hpf Urine WBC (0-6) /hpf Ur Epithelial Cells (0-5) /hpf Urine Bacteria (NONE) /hpf Urine Opiates Screen (NEGATIVE) Urine Methadone Screen (NEGATIVE) Ur Barbiturates Screen (NEGATIVE) Ur Phencyclidine Scrn (NEGATIVE) Ur Amphetamines Screen (NEGATIVE) U Benzodiazepines Scrn (NEGATIVE) U Oth Cocaine Metabols (NEGATIVE) U Cannabinoids Screen (NEGATIVE) 09/20/18 09/20/18 09/20/18 Range/Units 05:12 03:00 02:20 WBC (4.5-11.0) 10^3/uL RBC (3.5-6.1) 10^6/uL Hgb (14.0-18.0) g/dL Hct (42.0-52.0) % MCV (80.0-105.0) fl MCH (25.0-35.0) pg MCHC (31.0-37.0) g/dl RDW (11.5-14.5) % Plt Count (120.0-450.0) 10^3/uL MPV (7.0-11.0) fl Neut % (Auto) (50.0-68.0) % Lymph % (Auto) (22.0-35.0) % [place] % (Auto) (1.0-6.0) % Eos % (Auto) (1.5-5.0) % Baso % (Auto) (0.0-3.0) % Lymph # (Auto) (1.2-3.4) [place] # (Auto) (0.1-0.6) Eos # (Auto) (0.0-0.7) Baso # (Auto) (0.0-2.0) K/mm3 Absolute Neuts (auto) (1.4-6.5) PT (9.4-12.5) SECONDS INR APTT (26.9-38.3) Seconds D-Dimer, Quantitative (0-243) ng/mlDDU Sodium (132-148) mmol/L Potassium (3.6-5.0) mmol/L Chloride (98-107) mmol/L Carbon Dioxide (21-33) mmol/L Anion Gap (10-20) BUN (7-21) mg/dL Creatinine (0.8-1.5) mg/dl Est GFR ( Amer) Est GFR (Non-Af Amer) POC Glucose (mg/dL) 313 H (65-110) mg/dL Random Glucose (70-110) mg/dL Hemoglobin A1c 11.1 H (4.2-6.5) % Calcium (8.4-10.5) mg/dL Magnesium (1.7-2.2) mg/dL Total Bilirubin (0.2-1.3) mg/dL AST (17-59) U/L ALT (7-56) U/L Alkaline Phosphatase (38-126) U/L Lactate Dehydrogenase (333-699) U/L Total Creatine Kinase (35-230) U/L Troponin I ng/mL NT-Pro-B Natriuret Pep (0-450) pg/mL Total Protein (5.8-8.3) g/dL Albumin (3.0-4.8) g/dL Globulin gm/dL Albumin/Globulin Ratio (1.1-1.8) Free T4 (0.78-2.19) ng/dL Total T3 (0.97-1.69) ng/mL TSH 3rd Generation (0.46-4.68) mIU/mL Urine Color (YELLOW) Urine Appearance (CLEAR) Urine pH (4.7-8.0) Ur Specific [place] (1.005-1.035) Urine Protein (<30 mg/dL) mg/dL Urine Glucose (UA) (NEGATIVE) mg/dL Urine Ketones (NEGATIVE) mg/dL Urine Blood (NEGATIVE) Urine Nitrate (NEGATIVE) Urine Bilirubin (NEGATIVE) Urine Urobilinogen (<1 E.U./dL) E.U./dL Ur Leukocyte Esterase (NEGATIVE) [place]/uL Urine RBC (0-2) /hpf Urine WBC (0-6) /hpf Ur Epithelial Cells (0-5) /hpf Urine Bacteria (NONE) /hpf Urine Opiates Screen Negative (NEGATIVE) Urine Methadone Screen Negative (NEGATIVE) Ur Barbiturates Screen Negative (NEGATIVE) Ur Phencyclidine Scrn Negative (NEGATIVE) Ur Amphetamines Screen Negative (NEGATIVE) U Benzodiazepines Scrn Negative (NEGATIVE) U Oth Cocaine Metabols Negative (NEGATIVE) U Cannabinoids Screen Negative (NEGATIVE) 09/20/18 09/20/18 09/20/18 Range/Units 02:20 00:50 00:50 WBC 9.4 (4.5-11.0) 10^3/uL RBC 5.30 (3.5-6.1) 10^6/uL Hgb 15.7 (14.0-18.0) g/dL Hct 46.6 (42.0-52.0) % MCV 87.9 (80.0-105.0) fl MCH 29.6 (25.0-35.0) pg MCHC 33.7 (31.0-37.0) g/dl RDW 13.1 (11.5-14.5) % Plt Count 268 (120.0-450.0) 10^3/uL MPV 11.1 H (7.0-11.0) fl Neut % (Auto) 62.6 (50.0-68.0) % Lymph % (Auto) 26.2 (22.0-35.0) % [place] % (Auto) 8.8 H (1.0-6.0) % Eos % (Auto) 2.2 (1.5-5.0) % Baso % (Auto) 0.2 (0.0-3.0) % Lymph # (Auto) 2.5 (1.2-3.4) [place] # (Auto) 0.8 H (0.1-0.6) Eos # (Auto) 0.2 (0.0-0.7) Baso # (Auto) 0.02 (0.0-2.0) K/mm3 Absolute Neuts (auto) 5.89 (1.4-6.5) PT (9.4-12.5) SECONDS INR APTT (26.9-38.3) Seconds D-Dimer, Quantitative (0-243) ng/mlDDU Sodium 137 (132-148) mmol/L Potassium 4.0 (3.6-5.0) mmol/L Chloride 98 (98-107) mmol/L Carbon Dioxide 28 (21-33) mmol/L Anion Gap 16 (10-20) BUN 18 (7-21) mg/dL Creatinine 1.0 (0.8-1.5) mg/dl Est GFR ( Amer) > 60 Est GFR (Non-Af Amer) > 60 POC Glucose (mg/dL) (65-110) mg/dL Random Glucose 309 H* D (70-110) mg/dL Hemoglobin A1c (4.2-6.5) % Calcium 9.2 (8.4-10.5) mg/dL Magnesium 1.7 (1.7-2.2) mg/dL Total Bilirubin 0.6 (0.2-1.3) mg/dL AST 29 (17-59) U/L ALT 40 (7-56) U/L Alkaline Phosphatase 102 (38-126) U/L Lactate Dehydrogenase 551 (333-699) U/L Total Creatine Kinase 221 (35-230) U/L Troponin I < 0.01 ng/mL NT-Pro-B Natriuret Pep 24.3 (0-450) pg/mL Total Protein 8.0 (5.8-8.3) g/dL Albumin 4.2 (3.0-4.8) g/dL Globulin 3.8 gm/dL Albumin/Globulin Ratio 1.1 (1.1-1.8) Free T4 (0.78-2.19) ng/dL Total T3 (0.97-1.69) ng/mL TSH 3rd Generation (0.46-4.68) mIU/mL Urine Color Light yellow (YELLOW) Urine Appearance Clear (CLEAR) Urine pH 6.0 (4.7-8.0) Ur Specific [place] 1.015 (1.005-1.035) Urine Protein Negative (<30 mg/dL) mg/dL Urine Glucose (UA) Negative (NEGATIVE) mg/dL Urine Ketones Trace H (NEGATIVE) mg/dL Urine Blood Small H (NEGATIVE) Urine Nitrate Negative (NEGATIVE) Urine Bilirubin Negative (NEGATIVE) Urine Urobilinogen 0.2 (<1 E.U./dL) E.U./dL Ur Leukocyte Esterase Negative (NEGATIVE) [place]/uL Urine RBC 1 - 3 H (0-2) /hpf Urine WBC None (0-6) /hpf Ur Epithelial Cells None (0-5) /hpf Urine Bacteria Few (NONE) /hpf Urine Opiates Screen (NEGATIVE) Urine Methadone Screen (NEGATIVE) Ur Barbiturates Screen (NEGATIVE) Ur Phencyclidine Scrn (NEGATIVE) Ur Amphetamines Screen (NEGATIVE) U Benzodiazepines Scrn (NEGATIVE) U Oth Cocaine Metabols (NEGATIVE) U Cannabinoids Screen (NEGATIVE) 09/20/18 Range/Units 00:50 WBC (4.5-11.0) 10^3/uL RBC (3.5-6.1) 10^6/uL Hgb (14.0-18.0) g/dL Hct (42.0-52.0) % MCV (80.0-105.0) fl MCH (25.0-35.0) pg MCHC (31.0-37.0) g/dl RDW (11.5-14.5) % Plt Count (120.0-450.0) 10^3/uL MPV (7.0-11.0) fl Neut % (Auto) (50.0-68.0) % Lymph % (Auto) (22.0-35.0) % [place] % (Auto) (1.0-6.0) % Eos % (Auto) (1.5-5.0) % Baso % (Auto) (0.0-3.0) % Lymph # (Auto) (1.2-3.4) [place] # (Auto) (0.1-0.6) Eos # (Auto) (0.0-0.7) Baso # (Auto) (0.0-2.0) K/mm3 Absolute Neuts (auto) (1.4-6.5) PT (9.4-12.5) SECONDS INR APTT (26.9-38.3) Seconds D-Dimer, Quantitative (0-243) ng/mlDDU Sodium (132-148) mmol/L Potassium (3.6-5.0) mmol/L Chloride (98-107) mmol/L Carbon Dioxide (21-33) mmol/L Anion Gap (10-20) BUN (7-21) mg/dL Creatinine (0.8-1.5) mg/dl Est GFR ( Amer) Est GFR (Non-Af Amer) POC Glucose (mg/dL) (65-110) mg/dL Random Glucose (70-110) mg/dL Hemoglobin A1c (4.2-6.5) % Calcium (8.4-10.5) mg/dL Magnesium (1.7-2.2) mg/dL Total Bilirubin (0.2-1.3) mg/dL AST (17-59) U/L ALT (7-56) U/L Alkaline Phosphatase (38-126) U/L Lactate Dehydrogenase (333-699) U/L Total Creatine Kinase (35-230) U/L Troponin I ng/mL NT-Pro-B Natriuret Pep (0-450) pg/mL Total Protein (5.8-8.3) g/dL Albumin (3.0-4.8) g/dL Globulin gm/dL Albumin/Globulin Ratio (1.1-1.8) Free T4 1.08 (0.78-2.19) ng/dL Total T3 1.26 (0.97-1.69) ng/mL TSH 3rd Generation 7.16 H (0.46-4.68) mIU/mL Urine Color (YELLOW) Urine Appearance (CLEAR) Urine pH (4.7-8.0) Ur Specific [place] (1.005-1.035) Urine Protein (<30 mg/dL) mg/dL Urine Glucose (UA) (NEGATIVE) mg/dL Urine Ketones (NEGATIVE) mg/dL Urine Blood (NEGATIVE) Urine Nitrate (NEGATIVE) Urine Bilirubin (NEGATIVE) Urine Urobilinogen (<1 E.U./dL) E.U./dL Ur Leukocyte Esterase (NEGATIVE) [place]/uL Urine RBC (0-2) /hpf Urine WBC (0-6) /hpf Ur Epithelial Cells (0-5) /hpf Urine Bacteria (NONE) /hpf Urine Opiates Screen (NEGATIVE) Urine Methadone Screen (NEGATIVE) Ur Barbiturates Screen (NEGATIVE) Ur Phencyclidine Scrn (NEGATIVE) Ur Amphetamines Screen (NEGATIVE) U Benzodiazepines Scrn (NEGATIVE) U Oth Cocaine Metabols (NEGATIVE) U Cannabinoids Screen (NEGATIVE) Laboratory Results - last 24 hr 09/20/18 09/20/18 09/20/18 00:50 00:50 00:50 WBC 9.4 RBC 5.30 Hgb 15.7 Hct 46.6 MCV 87.9 MCH 29.6 MCHC 33.7 RDW 13.1 Plt Count 268 MPV 11.1 H Neut % (Auto) 62.6 Lymph % (Auto) 26.2 [place] % (Auto) 8.8 H Eos % (Auto) 2.2 Baso % (Auto) 0.2 Lymph # (Auto) 2.5 [place] # (Auto) 0.8 H Eos # (Auto) 0.2 Baso # (Auto) 0.02 Absolute Neuts (auto) 5.89 PT INR APTT D-Dimer, Quantitative Sodium 137 Potassium 4.0 Chloride 98 Carbon Dioxide 28 Anion Gap 16 BUN 18 Creatinine 1.0 Est GFR ( Amer) > 60 Est GFR (Non-Af Amer) > 60 POC Glucose (mg/dL) Random Glucose 309 H* D Hemoglobin A1c Calcium 9.2 Magnesium 1.7 Total Bilirubin 0.6 AST 29 ALT 40 Alkaline Phosphatase 102 Lactate Dehydrogenase 551 Total Creatine Kinase 221 Troponin I < 0.01 NT-Pro-B Natriuret Pep 24.3 Total Protein 8.0 Albumin 4.2 Globulin 3.8 Albumin/Globulin Ratio 1.1 Free T4 1.08 Total T3 1.26 TSH 3rd Generation 7.16 H Urine Color Urine Appearance Urine pH Ur Specific [place] Urine Protein Urine Glucose (UA) Urine Ketones Urine Blood Urine Nitrate Urine Bilirubin Urine Urobilinogen Ur Leukocyte Esterase Urine RBC Urine WBC Ur Epithelial Cells Urine Bacteria Urine Opiates Screen Urine Methadone Screen Ur Barbiturates Screen Ur Phencyclidine Scrn Ur Amphetamines Screen U Benzodiazepines Scrn U Oth Cocaine Metabols U Cannabinoids Screen 09/20/18 09/20/18 09/20/18 02:20 02:20 03:00 WBC RBC Hgb Hct MCV MCH MCHC RDW Plt Count MPV Neut % (Auto) Lymph % (Auto) [place] % (Auto) Eos % (Auto) Baso % (Auto) Lymph # (Auto) [place] # (Auto) Eos # (Auto) Baso # (Auto) Absolute Neuts (auto) PT INR APTT D-Dimer, Quantitative Sodium Potassium Chloride Carbon Dioxide Anion Gap BUN Creatinine Est GFR ( Amer) Est GFR (Non-Af Amer) POC Glucose (mg/dL) Random Glucose Hemoglobin A1c 11.1 H Calcium Magnesium Total Bilirubin AST ALT Alkaline Phosphatase Lactate Dehydrogenase Total Creatine Kinase Troponin I NT-Pro-B Natriuret Pep Total Protein Albumin Globulin Albumin/Globulin Ratio Free T4 Total T3 TSH 3rd Generation Urine Color Light yellow Urine Appearance Clear Urine pH 6.0 Ur Specific [place] 1.015 Urine Protein Negative Urine Glucose (UA) Negative Urine Ketones Trace H Urine Blood Small H Urine Nitrate Negative Urine Bilirubin Negative Urine Urobilinogen 0.2 Ur Leukocyte Esterase Negative Urine RBC 1 - 3 H Urine WBC None Ur Epithelial Cells None Urine Bacteria Few Urine Opiates Screen Negative Urine Methadone Screen Negative Ur Barbiturates Screen Negative Ur Phencyclidine Scrn Negative Ur Amphetamines Screen Negative U Benzodiazepines Scrn Negative U Oth Cocaine Metabols Negative U Cannabinoids Screen Negative 09/20/18 09/20/18 09/20/18 05:12 07:19 08:00 WBC RBC Hgb Hct MCV MCH MCHC RDW Plt Count MPV Neut % (Auto) Lymph % (Auto) [place] % (Auto) Eos % (Auto) Baso % (Auto) Lymph # (Auto) [place] # (Auto) Eos # (Auto) Baso # (Auto) Absolute Neuts (auto) PT INR APTT D-Dimer, Quantitative Sodium Potassium Chloride Carbon Dioxide Anion Gap BUN Creatinine Est GFR ( Amer) Est GFR (Non-Af Amer) POC Glucose (mg/dL) 313 H 321 H Random Glucose Hemoglobin A1c Calcium Magnesium Total Bilirubin AST ALT Alkaline Phosphatase Lactate Dehydrogenase Total Creatine Kinase Troponin I < 0.01 NT-Pro-B Natriuret Pep Total Protein Albumin Globulin Albumin/Globulin Ratio Free T4 Total T3 TSH 3rd Generation Urine Color Urine Appearance Urine pH Ur Specific [place] Urine Protein Urine Glucose (UA) Urine Ketones Urine Blood Urine Nitrate Urine Bilirubin Urine Urobilinogen Ur Leukocyte Esterase Urine RBC Urine WBC Ur Epithelial Cells Urine Bacteria Urine Opiates Screen Urine Methadone Screen Ur Barbiturates Screen Ur Phencyclidine Scrn Ur Amphetamines Screen U Benzodiazepines Scrn U Oth Cocaine Metabols U Cannabinoids Screen 09/20/18 09/20/18 09/20/18 08:00 08:00 10:55 WBC RBC Hgb Hct MCV MCH MCHC RDW Plt Count MPV Neut % (Auto) Lymph % (Auto) [place] % (Auto) Eos % (Auto) Baso % (Auto) Lymph # (Auto) [place] # (Auto) Eos # (Auto) Baso # (Auto) Absolute Neuts (auto) PT 11.0 INR 0.97 APTT 41.9 H D-Dimer, Quantitative < 200 Sodium Potassium Chloride Carbon Dioxide Anion Gap BUN Creatinine Est GFR ( Amer) Est GFR (Non-Af Amer) POC Glucose (mg/dL) 222 H Random Glucose Hemoglobin A1c Calcium Magnesium Total Bilirubin AST ALT Alkaline Phosphatase Lactate Dehydrogenase Total Creatine Kinase Troponin I NT-Pro-B Natriuret Pep Total Protein Albumin Globulin Albumin/Globulin Ratio Free T4 Total T3 TSH 3rd Generation Urine Color Urine Appearance Urine pH Ur Specific [place] Urine Protein Urine Glucose (UA) Urine Ketones Urine Blood Urine Nitrate Urine Bilirubin Urine Urobilinogen Ur Leukocyte Esterase Urine RBC Urine WBC Ur Epithelial Cells Urine Bacteria Urine Opiates Screen Urine Methadone Screen Ur Barbiturates Screen Ur Phencyclidine Scrn Ur Amphetamines Screen U Benzodiazepines Scrn U Oth Cocaine Metabols U Cannabinoids Screen 09/20/18 13:00 WBC RBC Hgb Hct MCV MCH MCHC RDW Plt Count MPV Neut % (Auto) Lymph % (Auto) [place] % (Auto) Eos % (Auto) Baso % (Auto) Lymph # (Auto) [place] # (Auto) Eos # (Auto) Baso # (Auto) Absolute Neuts (auto) PT INR APTT D-Dimer, Quantitative Sodium Potassium Chloride Carbon Dioxide Anion Gap BUN Creatinine Est GFR ( Amer) Est GFR (Non-Af Amer) POC Glucose (mg/dL) Random Glucose Hemoglobin A1c Calcium Magnesium Total Bilirubin AST ALT Alkaline Phosphatase Lactate Dehydrogenase Total Creatine Kinase Troponin I < 0.01 NT-Pro-B Natriuret Pep Total Protein Albumin Globulin Albumin/Globulin Ratio Free T4 Total T3 TSH 3rd Generation Urine Color Urine Appearance Urine pH Ur Specific [place] Urine Protein Urine Glucose (UA) Urine Ketones Urine Blood Urine Nitrate Urine Bilirubin Urine Urobilinogen Ur Leukocyte Esterase Urine RBC Urine WBC Ur Epithelial Cells Urine Bacteria Urine Opiates Screen Urine Methadone Screen Ur Barbiturates Screen Ur Phencyclidine Scrn Ur Amphetamines Screen U Benzodiazepines Scrn U Oth Cocaine Metabols U Cannabinoids Screen Radiology Impressions: Radiology Impressions Chest X-Ray 09/20/18 01:06 IMPRESSION: No active pulmonary disease. EKG/Cardiology Studies: Cardiology / EKG Studies 09/20/18 01:06 ELECTROCARDIOGRAM Stat Comment: Reason For Exam: chest pain 09/20/18 01:10 EKG [ELECTROCARDIOGRAM] Stat Comment: Reason For Exam: chest pain 09/20/18 07:00 EKG [ELECTROCARDIOGRAM] Q6H Comment: Reason For Exam: a fib, acs r/o 09/20/18 13:00 EKG [ELECTROCARDIOGRAM] Q6H Comment: Reason For Exam: a fib, acs r/o Fingerstick Blood Sugar Results: 222 Review of Systems - Review of Systems All systems: reviewed and no additional remarkable complaints except (as stated in HPI) Critical Care Progress Note - Nutrition Nutrition: Nutrition Category Date Time Status Heart Healthy Diet [DIET] Diets 09/20/18 Breakfast Active Assessment/Plan - Assessment and Plan (Free Text) Plan: Patient is a 42 year old male with a past medical history of atrial fibrillation, DM, hypertension who presents with complains of shortness of breath and palpitations. 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 Patient no longer requires ICU monitoring, patient to be transferred to telemetry. Seen and discussed with Dr Conrad. <Fercho Conrad - Last Filed: 09/20/18 17:47> CCU Objective - Vital Signs / Intake & Output Vital Signs (Last 4 hours): Vital Signs Pulse Resp BP Pulse Ox 09/20/18 17:02 88 112/67 09/20/18 16:30 72 16 95 09/20/18 16:20 73 18 95 09/20/18 16:10 74 17 95 09/20/18 16:05 81 18 112/67 96 09/20/18 16:00 78 17 94 L 09/20/18 15:50 80 17 95 09/20/18 15:40 75 15 96 09/20/18 15:30 74 16 95 09/20/18 15:20 74 16 95 09/20/18 15:10 77 18 95 09/20/18 15:00 75 16 96 09/20/18 14:50 78 18 94 L 09/20/18 14:40 82 21 94 L 09/20/18 14:30 81 20 94 L 09/20/18 14:20 79 19 95 09/20/18 14:10 84 18 95 09/20/18 14:00 80 24 94 L 09/20/18 13:50 82 22 96 Intake and Output (Last 8hrs): Intake & Output 09/20/18 09/20/18 09/20/18 06:59 14:59 22:59 Intake Total 1170 70 Output Total 0 Balance 1170 70 Weight 267 lb Intake: IV 1170 70 Right Antecubital 1000 Right Hand 100 Output: Stool 0 - Medications Active Medications: Active Medications Generic Name Dose Route Start Last Admin Trade Name Freq PRN Reason Stop Dose Admin Dextrose 0 ml 09/20/18 04:11 Dextrose 50% Inj IV STAT PRN Hypoglycemia Protocol Protocol Diltiazem HCl 60 mg 09/20/18 10:00 09/20/18 17:02 Cardizem PO 60 mg QID ANYA Administration Enoxaparin Sodium 120 mg 09/20/18 04:15 09/20/18 16:57 Lovenox SC 120 mg Q12H ANYA Administration Protocol Glyburide 5 mg 09/20/18 17:00 09/20/18 17:04 Micronase PO 5 mg BIDWM ANYA Administration diltiaZEM IVPB 100mg in NS 100 mls @ 5 mls/hr 09/20/18 02:39 09/20/18 12:30 Cardizem 100mg In Ns IV 0 mg/hr .Q20H PRN 0 mls/hr TITRATE PER MD ORDER Titration Protocol 5 MG/HR Dextrose 1,000 mls @ 0 mls/hr 09/20/18 04:11 Dextrose 5% In Water 1000 Ml IV .Q0M PRN Hypoglycemia Protocol Protocol Per Protocol Insulin Human Regular 0 units 09/20/18 16:30 09/20/18 16:59 Humulin R Med SC 3 units ACHS ANYA Administration Protocol Lisinopril 2.5 mg 09/21/18 10:00 Zestril PO DAILY ANYA - Patient Studies Lab Studies: Lab Studies 09/20/18 09/20/18 09/20/18 Range/Units 13:00 10:55 08:00 WBC (4.5-11.0) 10^3/uL RBC (3.5-6.1) 10^6/uL Hgb (14.0-18.0) g/dL Hct (42.0-52.0) % MCV (80.0-105.0) fl MCH (25.0-35.0) pg MCHC (31.0-37.0) g/dl RDW (11.5-14.5) % Plt Count (120.0-450.0) 10^3/uL MPV (7.0-11.0) fl Neut % (Auto) (50.0-68.0) % Lymph % (Auto) (22.0-35.0) % [place] % (Auto) (1.0-6.0) % Eos % (Auto) (1.5-5.0) % Baso % (Auto) (0.0-3.0) % Lymph # (Auto) (1.2-3.4) [place] # (Auto) (0.1-0.6) Eos # (Auto) (0.0-0.7) Baso # (Auto) (0.0-2.0) K/mm3 Absolute Neuts (auto) (1.4-6.5) PT (9.4-12.5) SECONDS INR APTT (26.9-38.3) Seconds D-Dimer, Quantitative < 200 (0-243) ng/mlDDU Sodium (132-148) mmol/L Potassium (3.6-5.0) mmol/L Chloride (98-107) mmol/L Carbon Dioxide (21-33) mmol/L Anion Gap (10-20) BUN (7-21) mg/dL Creatinine (0.8-1.5) mg/dl Est GFR ( Amer) Est GFR (Non-Af Amer) POC Glucose (mg/dL) 222 H (65-110) mg/dL Random Glucose (70-110) mg/dL Hemoglobin A1c (4.2-6.5) % Calcium (8.4-10.5) mg/dL Magnesium (1.7-2.2) mg/dL Total Bilirubin (0.2-1.3) mg/dL AST (17-59) U/L ALT (7-56) U/L Alkaline Phosphatase (38-126) U/L Lactate Dehydrogenase (333-699) U/L Total Creatine Kinase (35-230) U/L Troponin I < 0.01 ng/mL NT-Pro-B Natriuret Pep (0-450) pg/mL Total Protein (5.8-8.3) g/dL Albumin (3.0-4.8) g/dL Globulin gm/dL Albumin/Globulin Ratio (1.1-1.8) Free T4 (0.78-2.19) ng/dL Total T3 (0.97-1.69) ng/mL TSH 3rd Generation (0.46-4.68) mIU/mL Urine Color (YELLOW) Urine Appearance (CLEAR) Urine pH (4.7-8.0) Ur Specific [place] (1.005-1.035) Urine Protein (<30 mg/dL) mg/dL Urine Glucose (UA) (NEGATIVE) mg/dL Urine Ketones (NEGATIVE) mg/dL Urine Blood (NEGATIVE) Urine Nitrate (NEGATIVE) Urine Bilirubin (NEGATIVE) Urine Urobilinogen (<1 E.U./dL) E.U./dL Ur Leukocyte Esterase (NEGATIVE) Dev[place]/uL Urine RBC (0-2) /hpf Urine WBC (0-6) /hpf Ur Epithelial Cells (0-5) /hpf Urine Bacteria (NONE) /hpf Urine Opiates Screen (NEGATIVE) Urine Methadone Screen (NEGATIVE) Ur Barbiturates Screen (NEGATIVE) Ur Phencyclidine Scrn (NEGATIVE) Ur Amphetamines Screen (NEGATIVE) U Benzodiazepines Scrn (NEGATIVE) U Oth Cocaine Metabols (NEGATIVE) U Cannabinoids Screen (NEGATIVE) 09/20/18 09/20/18 09/20/18 Range/Units 08:00 08:00 07:19 WBC (4.5-11.0) 10^3/uL RBC (3.5-6.1) 10^6/uL Hgb (14.0-18.0) g/dL Hct (42.0-52.0) % MCV (80.0-105.0) fl MCH (25.0-35.0) pg MCHC (31.0-37.0) g/dl RDW (11.5-14.5) % Plt Count (120.0-450.0) 10^3/uL MPV (7.0-11.0) fl Neut % (Auto) (50.0-68.0) % Lymph % (Auto) (22.0-35.0) % [place] % (Auto) (1.0-6.0) % Eos % (Auto) (1.5-5.0) % Baso % (Auto) (0.0-3.0) % Lymph # (Auto) (1.2-3.4) [place] # (Auto) (0.1-0.6) Eos # (Auto) (0.0-0.7) Baso # (Auto) (0.0-2.0) K/mm3 Absolute Neuts (auto) (1.4-6.5) PT 11.0 (9.4-12.5) SECONDS INR 0.97 APTT 41.9 H (26.9-38.3) Seconds D-Dimer, Quantitative (0-243) ng/mlDDU Sodium (132-148) mmol/L Potassium (3.6-5.0) mmol/L Chloride (98-107) mmol/L Carbon Dioxide (21-33) mmol/L Anion Gap (10-20) BUN (7-21) mg/dL Creatinine (0.8-1.5) mg/dl Est GFR ( Amer) Est GFR (Non-Af Amer) POC Glucose (mg/dL) 321 H (65-110) mg/dL Random Glucose (70-110) mg/dL Hemoglobin A1c (4.2-6.5) % Calcium (8.4-10.5) mg/dL Magnesium (1.7-2.2) mg/dL Total Bilirubin (0.2-1.3) mg/dL AST (17-59) U/L ALT (7-56) U/L Alkaline Phosphatase (38-126) U/L Lactate Dehydrogenase (333-699) U/L Total Creatine Kinase (35-230) U/L Troponin I < 0.01 ng/mL NT-Pro-B Natriuret Pep (0-450) pg/mL Total Protein (5.8-8.3) g/dL Albumin (3.0-4.8) g/dL Globulin gm/dL Albumin/Globulin Ratio (1.1-1.8) Free T4 (0.78-2.19) ng/dL Total T3 (0.97-1.69) ng/mL TSH 3rd Generation (0.46-4.68) mIU/mL Urine Color (YELLOW) Urine Appearance (CLEAR) Urine pH (4.7-8.0) Ur Specific [place] (1.005-1.035) Urine Protein (<30 mg/dL) mg/dL Urine Glucose (UA) (NEGATIVE) mg/dL Urine Ketones (NEGATIVE) mg/dL Urine Blood (NEGATIVE) Urine Nitrate (NEGATIVE) Urine Bilirubin (NEGATIVE) Urine Urobilinogen (<1 E.U./dL) E.U./dL Ur Leukocyte Esterase (NEGATIVE) [place]/uL Urine RBC (0-2) /hpf Urine WBC (0-6) /hpf Ur Epithelial Cells (0-5) /hpf Urine Bacteria (NONE) /hpf Urine Opiates Screen (NEGATIVE) Urine Methadone Screen (NEGATIVE) Ur Barbiturates Screen (NEGATIVE) Ur Phencyclidine Scrn (NEGATIVE) Ur Amphetamines Screen (NEGATIVE) U Benzodiazepines Scrn (NEGATIVE) U Oth Cocaine Metabols (NEGATIVE) U Cannabinoids Screen (NEGATIVE) 09/20/18 09/20/18 09/20/18 Range/Units 05:12 03:00 02:20 WBC (4.5-11.0) 10^3/uL RBC (3.5-6.1) 10^6/uL Hgb (14.0-18.0) g/dL Hct (42.0-52.0) % MCV (80.0-105.0) fl MCH (25.0-35.0) pg MCHC (31.0-37.0) g/dl RDW (11.5-14.5) % Plt Count (120.0-450.0) 10^3/uL MPV (7.0-11.0) fl Neut % (Auto) (50.0-68.0) % Lymph % (Auto) (22.0-35.0) % [place] % (Auto) (1.0-6.0) % Eos % (Auto) (1.5-5.0) % Baso % (Auto) (0.0-3.0) % Lymph # (Auto) (1.2-3.4) [place] # (Auto) (0.1-0.6) Eos # (Auto) (0.0-0.7) Baso # (Auto) (0.0-2.0) K/mm3 Absolute Neuts (auto) (1.4-6.5) PT (9.4-12.5) SECONDS INR APTT (26.9-38.3) Seconds D-Dimer, Quantitative (0-243) ng/mlDDU Sodium (132-148) mmol/L Potassium (3.6-5.0) mmol/L Chloride (98-107) mmol/L Carbon Dioxide (21-33) mmol/L Anion Gap (10-20) BUN (7-21) mg/dL Creatinine (0.8-1.5) mg/dl Est GFR ( Amer) Est GFR (Non-Af Amer) POC Glucose (mg/dL) 313 H (65-110) mg/dL Random Glucose (70-110) mg/dL Hemoglobin A1c 11.1 H (4.2-6.5) % Calcium (8.4-10.5) mg/dL Magnesium (1.7-2.2) mg/dL Total Bilirubin (0.2-1.3) mg/dL AST (17-59) U/L ALT (7-56) U/L Alkaline Phosphatase (38-126) U/L Lactate Dehydrogenase (333-699) U/L Total Creatine Kinase (35-230) U/L Troponin I ng/mL NT-Pro-B Natriuret Pep (0-450) pg/mL Total Protein (5.8-8.3) g/dL Albumin (3.0-4.8) g/dL Globulin gm/dL Albumin/Globulin Ratio (1.1-1.8) Free T4 (0.78-2.19) ng/dL Total T3 (0.97-1.69) ng/mL TSH 3rd Generation (0.46-4.68) mIU/mL Urine Color (YELLOW) Urine Appearance (CLEAR) Urine pH (4.7-8.0) Ur Specific [place] (1.005-1.035) Urine Protein (<30 mg/dL) mg/dL Urine Glucose (UA) (NEGATIVE) mg/dL Urine Ketones (NEGATIVE) mg/dL Urine Blood (NEGATIVE) Urine Nitrate (NEGATIVE) Urine Bilirubin (NEGATIVE) Urine Urobilinogen (<1 E.U./dL) E.U./dL Ur Leukocyte Esterase (NEGATIVE) [place]/uL Urine RBC (0-2) /hpf Urine WBC (0-6) /hpf Ur Epithelial Cells (0-5) /hpf Urine Bacteria (NONE) /hpf Urine Opiates Screen Negative (NEGATIVE) Urine Methadone Screen Negative (NEGATIVE) Ur Barbiturates Screen Negative (NEGATIVE) Ur Phencyclidine Scrn Negative (NEGATIVE) Ur Amphetamines Screen Negative (NEGATIVE) U Benzodiazepines Scrn Negative (NEGATIVE) U Oth Cocaine Metabols Negative (NEGATIVE) U Cannabinoids Screen Negative (NEGATIVE) 09/20/18 09/20/18 09/20/18 Range/Units 02:20 00:50 00:50 WBC 9.4 (4.5-11.0) 10^3/uL RBC 5.30 (3.5-6.1) 10^6/uL Hgb 15.7 (14.0-18.0) g/dL Hct 46.6 (42.0-52.0) % MCV 87.9 (80.0-105.0) fl MCH 29.6 (25.0-35.0) pg MCHC 33.7 (31.0-37.0) g/dl RDW 13.1 (11.5-14.5) % Plt Count 268 (120.0-450.0) 10^3/uL MPV 11.1 H (7.0-11.0) fl Neut % (Auto) 62.6 (50.0-68.0) % Lymph % (Auto) 26.2 (22.0-35.0) % [place] % (Auto) 8.8 H (1.0-6.0) % Eos % (Auto) 2.2 (1.5-5.0) % Baso % (Auto) 0.2 (0.0-3.0) % Lymph # (Auto) 2.5 (1.2-3.4) [place] # (Auto) 0.8 H (0.1-0.6) Eos # (Auto) 0.2 (0.0-0.7) Baso # (Auto) 0.02 (0.0-2.0) K/mm3 Absolute Neuts (auto) 5.89 (1.4-6.5) PT (9.4-12.5) SECONDS INR APTT (26.9-38.3) Seconds D-Dimer, Quantitative (0-243) ng/mlDDU Sodium 137 (132-148) mmol/L Potassium 4.0 (3.6-5.0) mmol/L Chloride 98 (98-107) mmol/L Carbon Dioxide 28 (21-33) mmol/L Anion Gap 16 (10-20) BUN 18 (7-21) mg/dL Creatinine 1.0 (0.8-1.5) mg/dl Est GFR ( Amer) > 60 Est GFR (Non-Af Amer) > 60 POC Glucose (mg/dL) (65-110) mg/dL Random Glucose 309 H* D (70-110) mg/dL Hemoglobin A1c (4.2-6.5) % Calcium 9.2 (8.4-10.5) mg/dL Magnesium 1.7 (1.7-2.2) mg/dL Total Bilirubin 0.6 (0.2-1.3) mg/dL AST 29 (17-59) U/L ALT 40 (7-56) U/L Alkaline Phosphatase 102 (38-126) U/L Lactate Dehydrogenase 551 (333-699) U/L Total Creatine Kinase 221 (35-230) U/L Troponin I < 0.01 ng/mL NT-Pro-B Natriuret Pep 24.3 (0-450) pg/mL Total Protein 8.0 (5.8-8.3) g/dL Albumin 4.2 (3.0-4.8) g/dL Globulin 3.8 gm/dL Albumin/Globulin Ratio 1.1 (1.1-1.8) Free T4 (0.78-2.19) ng/dL Total T3 (0.97-1.69) ng/mL TSH 3rd Generation (0.46-4.68) mIU/mL Urine Color Light yellow (YELLOW) Urine Appearance Clear (CLEAR) Urine pH 6.0 (4.7-8.0) Ur Specific [place] 1.015 (1.005-1.035) Urine Protein Negative (<30 mg/dL) mg/dL Urine Glucose (UA) Negative (NEGATIVE) mg/dL Urine Ketones Trace H (NEGATIVE) mg/dL Urine Blood Small H (NEGATIVE) Urine Nitrate Negative (NEGATIVE) Urine Bilirubin Negative (NEGATIVE) Urine Urobilinogen 0.2 (<1 E.U./dL) E.U./dL Ur Leukocyte Esterase Negative (NEGATIVE) [place]/uL Urine RBC 1 - 3 H (0-2) /hpf Urine WBC None (0-6) /hpf Ur Epithelial Cells None (0-5) /hpf Urine Bacteria Few (NONE) /hpf Urine Opiates Screen (NEGATIVE) Urine Methadone Screen (NEGATIVE) Ur Barbiturates Screen (NEGATIVE) Ur Phencyclidine Scrn (NEGATIVE) Ur Amphetamines Screen (NEGATIVE) U Benzodiazepines Scrn (NEGATIVE) U Oth Cocaine Metabols (NEGATIVE) U Cannabinoids Screen (NEGATIVE) 09/20/18 Range/Units 00:50 WBC (4.5-11.0) 10^3/uL RBC (3.5-6.1) 10^6/uL Hgb (14.0-18.0) g/dL Hct (42.0-52.0) % MCV (80.0-105.0) fl MCH (25.0-35.0) pg MCHC (31.0-37.0) g/dl RDW (11.5-14.5) % Plt Count (120.0-450.0) 10^3/uL MPV (7.0-11.0) fl Neut % (Auto) (50.0-68.0) % Lymph % (Auto) (22.0-35.0) % [place] % (Auto) (1.0-6.0) % Eos % (Auto) (1.5-5.0) % Baso % (Auto) (0.0-3.0) % Lymph # (Auto) (1.2-3.4) [place] # (Auto) (0.1-0.6) Eos # (Auto) (0.0-0.7) Baso # (Auto) (0.0-2.0) K/mm3 Absolute Neuts (auto) (1.4-6.5) PT (9.4-12.5) SECONDS INR APTT (26.9-38.3) Seconds D-Dimer, Quantitative (0-243) ng/mlDDU Sodium (132-148) mmol/L Potassium (3.6-5.0) mmol/L Chloride (98-107) mmol/L Carbon Dioxide (21-33) mmol/L Anion Gap (10-20) BUN (7-21) mg/dL Creatinine (0.8-1.5) mg/dl Est GFR ( Amer) Est GFR (Non-Af Amer) POC Glucose (mg/dL) (65-110) mg/dL Random Glucose (70-110) mg/dL Hemoglobin A1c (4.2-6.5) % Calcium (8.4-10.5) mg/dL Magnesium (1.7-2.2) mg/dL Total Bilirubin (0.2-1.3) mg/dL AST (17-59) U/L ALT (7-56) U/L Alkaline Phosphatase (38-126) U/L Lactate Dehydrogenase (333-699) U/L Total Creatine Kinase (35-230) U/L Troponin I ng/mL NT-Pro-B Natriuret Pep (0-450) pg/mL Total Protein (5.8-8.3) g/dL Albumin (3.0-4.8) g/dL Globulin gm/dL Albumin/Globulin Ratio (1.1-1.8) Free T4 1.08 (0.78-2.19) ng/dL Total T3 1.26 (0.97-1.69) ng/mL TSH 3rd Generation 7.16 H (0.46-4.68) mIU/mL Urine Color (YELLOW) Urine Appearance (CLEAR) Urine pH (4.7-8.0) Ur Specific [place] (1.005-1.035) Urine Protein (<30 mg/dL) mg/dL Urine Glucose (UA) (NEGATIVE) mg/dL Urine Ketones (NEGATIVE) mg/dL Urine Blood (NEGATIVE) Urine Nitrate (NEGATIVE) Urine Bilirubin (NEGATIVE) Urine Urobilinogen (<1 E.U./dL) E.U./dL Ur Leukocyte Esterase (NEGATIVE) [place]/uL Urine RBC (0-2) /hpf Urine WBC (0-6) /hpf Ur Epithelial Cells (0-5) /hpf Urine Bacteria (NONE) /hpf Urine Opiates Screen (NEGATIVE) Urine Methadone Screen (NEGATIVE) Ur Barbiturates Screen (NEGATIVE) Ur Phencyclidine Scrn (NEGATIVE) Ur Amphetamines Screen (NEGATIVE) U Benzodiazepines Scrn (NEGATIVE) U Oth Cocaine Metabols (NEGATIVE) U Cannabinoids Screen (NEGATIVE) Laboratory Results - last 24 hr 09/20/18 09/20/18 09/20/18 00:50 00:50 00:50 WBC 9.4 RBC 5.30 Hgb 15.7 Hct 46.6 MCV 87.9 MCH 29.6 MCHC 33.7 RDW 13.1 Plt Count 268 MPV 11.1 H Neut % (Auto) 62.6 Lymph % (Auto) 26.2 [place] % (Auto) 8.8 H Eos % (Auto) 2.2 Baso % (Auto) 0.2 Lymph # (Auto) 2.5 [place] # (Auto) 0.8 H Eos # (Auto) 0.2 Baso # (Auto) 0.02 Absolute Neuts (auto) 5.89 PT INR APTT D-Dimer, Quantitative Sodium 137 Potassium 4.0 Chloride 98 Carbon Dioxide 28 Anion Gap 16 BUN 18 Creatinine 1.0 Est GFR ( Amer) > 60 Est GFR (Non-Af Amer) > 60 POC Glucose (mg/dL) Random Glucose 309 H* D Hemoglobin A1c Calcium 9.2 Magnesium 1.7 Total Bilirubin 0.6 AST 29 ALT 40 Alkaline Phosphatase 102 Lactate Dehydrogenase 551 Total Creatine Kinase 221 Troponin I < 0.01 NT-Pro-B Natriuret Pep 24.3 Total Protein 8.0 Albumin 4.2 Globulin 3.8 Albumin/Globulin Ratio 1.1 Free T4 1.08 Total T3 1.26 TSH 3rd Generation 7.16 H Urine Color Urine Appearance Urine pH Ur Specific [place] Urine Protein Urine Glucose (UA) Urine Ketones Urine Blood Urine Nitrate Urine Bilirubin Urine Urobilinogen Ur Leukocyte Esterase Urine RBC Urine WBC Ur Epithelial Cells Urine Bacteria Urine Opiates Screen Urine Methadone Screen Ur Barbiturates Screen Ur Phencyclidine Scrn Ur Amphetamines Screen U Benzodiazepines Scrn U Oth Cocaine Metabols U Cannabinoids Screen 09/20/18 09/20/18 09/20/18 02:20 02:20 03:00 WBC RBC Hgb Hct MCV MCH MCHC RDW Plt Count MPV Neut % (Auto) Lymph % (Auto) [place] % (Auto) Eos % (Auto) Baso % (Auto) Lymph # (Auto) [place] # (Auto) Eos # (Auto) Baso # (Auto) Absolute Neuts (auto) PT INR APTT D-Dimer, Quantitative Sodium Potassium Chloride Carbon Dioxide Anion Gap BUN Creatinine Est GFR ( Amer) Est GFR (Non-Af Amer) POC Glucose (mg/dL) Random Glucose Hemoglobin A1c 11.1 H Calcium Magnesium Total Bilirubin AST ALT Alkaline Phosphatase Lactate Dehydrogenase Total Creatine Kinase Troponin I NT-Pro-B Natriuret Pep Total Protein Albumin Globulin Albumin/Globulin Ratio Free T4 Total T3 TSH 3rd Generation Urine Color Light yellow Urine Appearance Clear Urine pH 6.0 Ur Specific [place] 1.015 Urine Protein Negative Urine Glucose (UA) Negative Urine Ketones Trace H Urine Blood Small H Urine Nitrate Negative Urine Bilirubin Negative Urine Urobilinogen 0.2 Ur Leukocyte Esterase Negative Urine RBC 1 - 3 H Urine WBC None Ur Epithelial Cells None Urine Bacteria Few Urine Opiates Screen Negative Urine Methadone Screen Negative Ur Barbiturates Screen Negative Ur Phencyclidine Scrn Negative Ur Amphetamines Screen Negative U Benzodiazepines Scrn Negative U Oth Cocaine Metabols Negative U Cannabinoids Screen Negative 09/20/18 09/20/18 09/20/18 05:12 07:19 08:00 WBC RBC Hgb Hct MCV MCH MCHC RDW Plt Count MPV Neut % (Auto) Lymph % (Auto) [place] % (Auto) Eos % (Auto) Baso % (Auto) Lymph # (Auto) [place] # (Auto) Eos # (Auto) Baso # (Auto) Absolute Neuts (auto) PT INR APTT D-Dimer, Quantitative Sodium Potassium Chloride Carbon Dioxide Anion Gap BUN Creatinine Est GFR ( Amer) Est GFR (Non-Af Amer) POC Glucose (mg/dL) 313 H 321 H Random Glucose Hemoglobin A1c Calcium Magnesium Total Bilirubin AST ALT Alkaline Phosphatase Lactate Dehydrogenase Total Creatine Kinase Troponin I < 0.01 NT-Pro-B Natriuret Pep Total Protein Albumin Globulin Albumin/Globulin Ratio Free T4 Total T3 TSH 3rd Generation Urine Color Urine Appearance Urine pH Ur Specific [place] Urine Protein Urine Glucose (UA) Urine Ketones Urine Blood Urine Nitrate Urine Bilirubin Urine Urobilinogen Ur Leukocyte Esterase Urine RBC Urine WBC Ur Epithelial Cells Urine Bacteria Urine Opiates Screen Urine Methadone Screen Ur Barbiturates Screen Ur Phencyclidine Scrn Ur Amphetamines Screen U Benzodiazepines Scrn U Oth Cocaine Metabols U Cannabinoids Screen 09/20/18 09/20/18 09/20/18 08:00 08:00 10:55 WBC RBC Hgb Hct MCV MCH MCHC RDW Plt Count MPV Neut % (Auto) Lymph % (Auto) [place] % (Auto) Eos % (Auto) Baso % (Auto) Lymph # (Auto) [place] # (Auto) Eos # (Auto) Baso # (Auto) Absolute Neuts (auto) PT 11.0 INR 0.97 APTT 41.9 H D-Dimer, Quantitative < 200 Sodium Potassium Chloride Carbon Dioxide Anion Gap BUN Creatinine Est GFR ( Amer) Est GFR (Non-Af Amer) POC Glucose (mg/dL) 222 H Random Glucose Hemoglobin A1c Calcium Magnesium Total Bilirubin AST ALT Alkaline Phosphatase Lactate Dehydrogenase Total Creatine Kinase Troponin I NT-Pro-B Natriuret Pep Total Protein Albumin Globulin Albumin/Globulin Ratio Free T4 Total T3 TSH 3rd Generation Urine Color Urine Appearance Urine pH Ur Specific [place] Urine Protein Urine Glucose (UA) Urine Ketones Urine Blood Urine Nitrate Urine Bilirubin Urine Urobilinogen Ur Leukocyte Esterase Urine RBC Urine WBC Ur Epithelial Cells Urine Bacteria Urine Opiates Screen Urine Methadone Screen Ur Barbiturates Screen Ur Phencyclidine Scrn Ur Amphetamines Screen U Benzodiazepines Scrn U Oth Cocaine Metabols U Cannabinoids Screen 09/20/18 13:00 WBC RBC Hgb Hct MCV MCH MCHC RDW Plt Count MPV Neut % (Auto) Lymph % (Auto) [place] % (Auto) Eos % (Auto) Baso % (Auto) Lymph # (Auto) [place] # (Auto) Eos # (Auto) Baso # (Auto) Absolute Neuts (auto) PT INR APTT D-Dimer, Quantitative Sodium Potassium Chloride Carbon Dioxide Anion Gap BUN Creatinine Est GFR ( Amer) Est GFR (Non-Af Amer) POC Glucose (mg/dL) Random Glucose Hemoglobin A1c Calcium Magnesium Total Bilirubin AST ALT Alkaline Phosphatase Lactate Dehydrogenase Total Creatine Kinase Troponin I < 0.01 NT-Pro-B Natriuret Pep Total Protein Albumin Globulin Albumin/Globulin Ratio Free T4 Total T3 TSH 3rd Generation Urine Color Urine Appearance Urine pH Ur Specific [place] Urine Protein Urine Glucose (UA) Urine Ketones Urine Blood Urine Nitrate Urine Bilirubin Urine Urobilinogen Ur Leukocyte Esterase Urine RBC Urine WBC Ur Epithelial Cells Urine Bacteria Urine Opiates Screen Urine Methadone Screen Ur Barbiturates Screen Ur Phencyclidine Scrn Ur Amphetamines Screen U Benzodiazepines Scrn U Oth Cocaine Metabols U Cannabinoids Screen Radiology Impressions: Radiology Impressions Chest X-Ray 09/20/18 01:06 IMPRESSION: No active pulmonary disease. EKG/Cardiology Studies: Cardiology / EKG Studies 09/20/18 01:06 ELECTROCARDIOGRAM Stat Comment: Reason For Exam: chest pain 09/20/18 01:10 EKG [ELECTROCARDIOGRAM] Stat Comment: Reason For Exam: chest pain 09/20/18 07:00 EKG [ELECTROCARDIOGRAM] Q6H Comment: Reason For Exam: a fib, acs r/o 09/20/18 13:00 EKG [ELECTROCARDIOGRAM] Q6H Comment: Reason For Exam: a fib, acs r/o Critical Care Progress Note - Nutrition Nutrition: Nutrition Category Date Time Status Heart Healthy Diet [DIET] Diets 09/20/18 Breakfast Active Attending/Attestation - Attestation I have personally seen and examined this patient.: Yes I have fully participated in the care of the patient.: Yes I have reviewed all pertinent clinical information: Yes Notes (Text): 09/20/18 17:[address] Conrad note
--- NOTE | 2018-09-20 19:59 | CON ---
DATE OF CONSULTATION: 09/20/2018 HISTORY OF PRESENT ILLNESS: This is a 42-year-old gentleman with history of paroxysmal atrial fibrillation, diabetes, hypertension, who presented with complaints of shortness of breath and palpitation. Those symptoms started night before his admission date. At that time, he felt very uncomfortable. Of note, the patient was on rate control medication about a year prior. However, as his symptoms were well controlled, he decided not to take the medication and was nonadherent to them for over a year. Once he noted those symptoms again, he went to [facility] to seek medical attention. He denies abdominal pain, nausea, vomiting, diarrhea, constipation or chest pain. PAST MEDICAL HISTORY: Atrial fibrillation, diabetes, hypertension. FAMILY HISTORY: Noncontributory. SOCIAL HISTORY: Tobacco use, prior history of heroin abuse and cocaine abuse. MEDICATIONS: None, however in the past was on Effient and Zestril. REVIEW OF SYSTEMS: Review of 12-organ system other than mentioned in the history of present illness is negative. PHYSICAL EXAMINATION: VITAL SIGNS: The patient is on Cardizem drip 20 mg per hour, heart rate 96, blood pressure 101/71, oxygen saturation 95%, respiratory rate 19. ENT: Head and neck atraumatic. LUNGS: Clear to auscultation bilaterally. HEART: Irregular rate and rhythm. S1, S2 normal. ABDOMEN: Soft, nontender, nondistended. MUSCULOSKELETAL: No C/C/E. NEURO: The patient moves all extremities spontaneously. SKIN: Moist. PSYCH: The patient is alert, awake and oriented x3. LABORATORY DATA: WBC 9.4, hemoglobin 15.7, platelet count 268,000. Sodium 137, potassium 4, chloride 98, carbon dioxide 28, BUN 18, creatinine 1, glucose 321. AST 29, ALT 40, total bilirubin 0.6. Troponin x2 negative. proBNP 24, albumin 4.2. PTT 41.9. Urine is negative for leukocyte esterase and nitrite. MEDICATIONS: Cardizem drip, Cardizem 60 mg p.o. 4 times a day, Lovenox 120 mg subcu every 12 hours, regular insulin sliding scale medium protocol. ASSESSMENT/PLAN: This is a 42-year-old gentleman with atrial fibrillation with rapid ventricular response, requiring Cardizem drip at 20 mg per hour. At present time, we will start Cardizem p.o. and overlap with Cardizem drip with subsequent intent to wean drip off. Continue TAC. The patient maintained adequate blood pressure and does not have any signs of end-organ dysfunction. His TSH is slightly elevated; however, free T4 and T3 are within normal limits. The patient is on therapeutic anticoagulation with Lovenox. Fercho Conrad MD MTDKira
--- NOTE | 2018-09-20 22:22 | CON ---
DATE OF CONSULTATION: 09/20/2018 REASON FOR CONSULTATION: Atrial fibrillation. HISTORY OF PRESENT ILLNESS: The patient is a 42-year-old male who is diabetic and has morbid obesity, presented because of palpitations, which started 11:30 last night while he is going to sleep. The patient did report shortness of breath, but denies any chest pain. The patient stated that he had similar episode some 18 months ago and was placed on medications including Roxanol, but he ran out of his medications and is not taking anything except for his diabetes. The patient denies any chest pain at this time and is unaware of any history of DVT or pulmonary embolism in the past. SOCIAL HISTORY: Nonsmoker, nondrinker. 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 CURRENT MEDICATIONS: Cardizem 60 mg p.o. 4 times a day and Cardizem infusion at 5 mg per hour, Lovenox 120 mg twice a day. REVIEW OF SYSTEMS: No fever or chills. The patient did experience dizziness, but no syncope. PHYSICAL EXAMINATION: GENERAL: The patient is a middle-aged male who does not appear to be in any acute distress, weighing about 267 pounds. VITAL SIGNS: Blood pressure 101/71, heart rate 108, temperature 97.8, respirations 20. HEENT: Normocephalic. CHEST: Diminished breath sounds bilaterally. HEART: S1 and S2 regular. ABDOMEN: Soft. EXTREMITIES: No edema. No calf tenderness. LABORATORY DATA: Urine drug screen is negative. The SMA-7 is within normal limits except for glucose of 309. Two sets of troponins are negative. TSH level is elevated at 7.16. Free T3 and total T3 are within normal limits. Today's hemoglobin/hematocrit, white count and platelet count are within normal limits. PTT 41.9, PT and INR are within normal limit. Today's EKG revealed atrial fibrillation at rate of 146 with nonspecific T-wave abnormality. Echocardiogram study performed in 06/2015, borderline concentric LVH with normal systolic function and normal diastolic function. No pulmonary hypertension. A Myoview stress test performed in 08/2017 was within normal limits. ASSESSMENT: 1. Paroxysmal atrial fibrillation. 2. Morbid obesity. 3. Uncontrolled diabetes mellitus. RECOMMENDATIONS: Continue current therapeutic subcutaneous Lovenox therapy and Cardizem therapy. Obtain a stat D-dimer. Colin Lambert MD
[2018-09-20] MEDS ORDERED: Benzocaine/Menthol (Cepacol) Lozenge MT STA (22:55)
--- NOTE | 2018-09-20 23:40 | HP ---
DATE OF EXAM: 09/20/2018 HISTORY OF PRESENT ILLNESS: He is my patient for a long time in the office. He is a 42-year-old white man who presents with feeling a palpitation in his chest while he was lying in the bed. It was like 11:00 p.m., it was of sudden onset, heart was racing, with some shortness of breath, just was not feeling well. No chest pain or diaphoresis. No nauseousness. It happened once before about a year ago. He had not taken his baby aspirin a day and his glyburide. He denies alcohol, drugs or smoking. 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 PAST MEDICAL HISTORY: He has had hypertension, diabetes, and AFib. He has had kidney stones, tries to watch a low-sugar diet. He has had an appendectomy before. FAMILY HISTORY: Diabetes in his family. SOCIAL HISTORY: A former smoker. Quit alcohol 17 years ago. Quit heroin and crack cocaine 17 years ago. He is trying to get his life together. He has got children now. ALLERGIES: NO KNOWN DRUG ALLERGIES. MEDICATIONS: He is on Zestril, Micronase and meclizine. REVIEW OF SYSTEMS: He is not fatigued. No fever. No acute vision or hearing changes. He is short of breath. No cough. He has palpitations. No chest pain or edema. No nausea, vomiting, constipation or diarrhea. No problems urinating. No back pain. No neck pain. No apparent rashes or ulcers that he knows of. No headaches, dizziness or focal weakness. He is not sweating. No swollen glands that he knows of. He is trying to improve. PHYSICAL EXAMINATION VITAL SIGNS: He has a 97.8 temp, 145 pulse, 18 respiratory rate, 105/67 blood pressure and 95% O2 sat. HEENT: His head is atraumatic, normocephalic. Extraocular muscles are intact. Pupils equally reactive to light. NECK: Supple. No meningeal signs. No JVD. No palpable cervical lymphadenopathy. Throat is moist. HEART: Irregular, tachy. LUNGS: Decreased breath sounds, but clear to auscultation. No wheezes. No rhonchi. No rales. Poor inspiration. ABDOMEN: Soft and nontender. Positive bowel sounds. No guarding, no rebound or CVA tenderness. EXTREMITIES: No edema. NEUROLOGIC: GCS is 15. Cranial nerves II through XII grossly intact. Speech is normal. Alert and oriented x3. SKIN: Warm and dry. IMAGING STUDIES: The pulse is high as 141 and 147. He has had multiple tests done. Chest x-ray; no active disease. He is currently on Cardizem, Dextrose, and Lovenox. LABORATORY DATA: He has 9.4 white count, 15.7 hemoglobin, 46.6 hematocrit with a 268 platelets. INR is 0.97 with a D-dimer less than 200. He has 137 sodium, potassium 4, BUN 18, creatinine 1, GFR is greater than 60, sugar is at 309, 313, 321 I will help him with his diabetes. Hemoglobin A1c is high at 11.1. Calcium is 9.2, magnesium 1.7, total bili is 0.6, AST is 29, ALT is 40, alk phos is 102 and lactate dehydrogenase is 551. Troponin I is 0.01 x3. BNP is 24.3. Total protein is 8. IMPRESSION AND PLAN: He has to take his blood pressure medications correctly when he is out of the hospital. Negative for toxicology. He has consults with Cardiology. We will check his labs. He has IV Cardizem. Hopefully he will improve in the Intensive Care Unit with rapid atrial fibrillation, a non-compliant diabetic with hypertension. Noe Rojas DO
[2018-09-21] MEDS: Enoxaparin 120 mg Syringe SC SCH (05:08)
[2018-09-21 05:56] VITALS: O2SAT 95
[2018-09-21 06:39] LABS: BASO # 0.01 K/mm3 (0.0-2.0); BASO % 0.1 % (0.0-3.0); EOS # 0.2 (0.0-0.7); EOS % 2.5 % (1.5-5.0); LYMPH # 1.6 (1.2-3.4); LYMPH % 23.8 % (22.0-35.0); MEAN CELL VOLUME 89.1 fl (80.0-105.0); MEAN CORPUSCULAR HEMOGLOBIN 29.3 pg (25.0-35.0); MEAN CORPUSCULAR HGB CONC 32.9 g/dl (31.0-37.0); MEAN PLATELET VOLUME 10.6 fl (7.0-11.0); MONO # 0.5 (0.1-0.6); RBC 4.68 10^6/uL (3.5-6.1); RED CELL DISTRIBUTION WIDTH 13.5 % (11.5-14.5); WHITE BLOOD COUNT 6.7 10^3/uL (4.5-11.0)
[2018-09-21 07:12] LABS: HEMOGLOBIN 13.7 g/dL (14.0-18.0)
--- NOTE | 2018-09-21 07:20 | CARD ---
APPROVED REPORT Date of service: 09/20/2018 EKG Measurement Heart [id number] <Conclusion> Atrial fibrillation with rapid ventricular response Nonspecific ST-T abnormalities Prolonged QT interval Abnormal ECG
[2018-09-21 07:27] LABS: BLOOD UREA NITROGEN 15 mg/dL (7-21); CALCIUM 8.5 mg/dL (8.4-10.5); GFR NON-AFRICAN AMERICAN > 60
[2018-09-21] MEDS: Insulin Reg-MEDIUM-Coverage SC SCH ×2 (08:26→12:10)
[2018-09-21] MEDS ORDERED: diltiaZEM 180 mg/24 Hours CD Cap PO SCH (10:00)
[2018-09-21 12:30] VITALS: BP 105/72; PULSE 85; RESP 20; TEMP 98.4
--- NOTE | 2018-09-21 13:24 | PN ---
DATE: 09/21/2018 SUBJECTIVE: The patient is sitting in a chair, comfortable without shortness of breath. He is back to normal sinus rhythm. PHYSICAL EXAMINATION: VITAL SIGNS: Blood pressure is 122/83, heart rate is in the 80s, normal sinus rhythm. NECK: Negative JVD. LUNGS: Without rales. HEART: S1, S2. EXTREMITIES: Without edema. LABORATORY DATA: Hemoglobin is 13.7, chemistries; BUN and creatinine are unremarkable, glucose is 197. The D-dimer is less than 200. IMPRESSION: 1. New-onset atrial fibrillation, which is paroxysmal and the patient is back to normal sinus rhythm. 2. Obesity. 3. Diabetes mellitus. PLAN: Given these findings, there is no evidence for pulmonary embolism with a negative D-dimer. The patient's heart rate is well controlled. Now that he is back in normal sinus rhythm, we will change the patient to Eliquis and long-acting Cardizem. We will obtain an echocardiogram after which, the patient can be discharged. The patient has been instructed to follow up with Dr. Rojas in his office later this week for continued care. Karlos Christian MD
--- NOTE | 2018-09-21 18:07 | CARD ---
APPROVED REPORT Date of service: 09/21/2018 EXAM: Two-dimensional and M-mode echocardiogram with Doppler and color Doppler. INDICATION LVFX 2D DIMENSIONS Left Atrium (2D)3.7 (1.6-4.0cm)IVSd0.9 (0.7-1.1cm) LVDd4.8 (3.9-5.9cm)PWd0.9 (0.7-1.1cm) LVDs3.6 (2.5-4.0cm)FS (%) 25.5 % LVEF (%)50.4 (>50%) M-Mode DIMENSIONS Aortic Root3.90 (2.2-3.7cm)Aortic Cusp Exc.1.80 (1.5-2.0cm) Aortic Valve AoV Peak Panrfbnt34.3cm/Pooja Peak GR.3mmHg Mitral Valve MV E Inhbxmcy56.7cm/sMV A Pkqtfrif38.1cm/sE/A ratio1.2 TDI E/Lateral E'0.0E/Medial E'0.0 Pulmonary Valve PV Peak Smotdlnd22.7cm/sPV Peak Grad.1mmHg Tricuspid Valve TR Peak [id number]/sRAP [id number] Peak Gr.9mmHg [id number] LEFT VENTRICLE The left ventricle is normal size. There is normal left ventricular wall thickness. Left ventricle ejection fraction is borderline. There is normal LV segmental wall motion. The left ventricular diastolic function is normal. RIGHT VENTRICLE The right ventricle is normal size. There is normal right ventricular wall thickness. The right ventricular systolic function is normal. ATRIA The left atrium size is normal. The right atrium size is normal. AORTIC VALVE The aortic valve is normal in structure. No aortic regurgitation is present. There is no aortic valvular stenosis. MITRAL VALVE The mitral valve is normal in structure. Mitral regurgitation is mild. There is no mitral valve stenosis. TRICUSPID VALVE The tricuspid valve is normal in structure. There is trace tricuspid regurgitation. PULMONIC VALVE The pulmonary valve is normal in structure. There is no pulmonic valvular regurgitation. GREAT VESSELS The aortic root is normal in size. The IVC is normal in size and collapses >50% with inspiration. PERICARDIAL EFFUSION There is no pericardial effusion. <Conclusion> The left ventricle is normal size. Left ventricle ejection fraction is borderline. There is normal LV segmental wall motion. The left ventricular diastolic function is normal. Mitral regurgitation is mild.
--- NOTE | 2018-09-21 23:10 | DS ---
HISTORY OF PRESENT ILLNESS: He was in the Intensive Care Unit for rapid AFib. He is currently on Cardizem p.o. 60 mg q.i.d., Lovenox, Micronase and Zestril. I could stop the Lovenox and put him on Eliquis and discharge him today. PHYSICAL EXAMINATION: VITAL SIGNS: He has a 97.8 temperature, 75 pulse, 108/77 blood pressure, 18 respiratory rate, and 95% O2 saturation on room air. HEENT: His head is atraumatic, normocephalic. HEART: Regular rate. LUNGS: Clear to auscultation. ABDOMEN: Soft and obese. EXTREMITIES: No edema. LABORATORY DATA: He has a white count 6.7, hemoglobin 13.7, hematocrit 41.7, platelets are 248. D-dimer is less than 200. Sodium 138, potassium 3.8, BUN 15, creatinine 0.7, GFR is greater than 60, the last blood sugar is 197, calcium is 8.5, phosphorus 3.3, magnesium 1.7. PLAN: I am hoping that we could stop the Lovenox, change him to Eliquis, keep him on the Cardizem, his Zestril, his Micronase. I am hoping to discharge him home today if it is okay with Cardiology. Noe Rojas DO
--- NOTE | 2018-09-21 23:36 | DS ---
HISTORY OF PRESENT ILLNESS: He is in room 260. He is out of the Intensive Care Unit. His heart rate is better. He is on p.o. Cardizem. He is on Lovenox 120 twice a day. I will discuss that with the taker off hemp fiber, I like to put him on Eliquis if needed. He is in bed. No chest pain. No shortness of breath. He is eating. He is walking. He is in good spirits, so I am hoping I could discharge him later today on his Cardizem, his Micronase, his Zestril, and possible Eliquis if needed. PHYSICAL EXAMINATION: VITAL SIGNS: He has a 97.8 temp, 75 pulse, 108/77 blood pressure, 18 respiratory rate, and 95% O2 sat on room air. HEENT: Head is atraumatic and normocephalic. HEART: Regular rate. LUNGS: Decreased breath sounds, but clear. ABDOMEN: Soft and obese. EXTREMITIES: No edema. LABORATORY DATA: He has a negative drug screen. He has a 6.7 white count, 30.7 hemoglobin, 41.7 hematocrit with a 248 platelets. D-dimer is less than 200. Sodium 138, potassium 3.8, BUN 15, creatinine 0.7, GFR is greater than 60, sugar is 197, and calcium is 8.5. Urine was clear. ASSESSMENT AND PLAN: I will discuss with Cardiology. I am hoping to discharge him today. He had rapid atrial fibrillation. He is in Intensive Care Unit, now he is doing better on p.o. medications. I will call him to the pharmacy unit downstairs at [facility]. Noe Rojas DO
== END 2018-09-21 13:58 | disposition home or self-care (01) | DRG 310 ==
LOC: ED 00:41 → ERH 03:31 → CCU 04:41 → 2RNO 20:06
PROVIDERS: ADMIT Family Medicine; ATTEND Family Medicine
DX: I48.0 Paroxysmal atrial fibrillation (principal); I10 Essential (primary) hypertension; E11.9 Type 2 diabetes mellitus without complications; E66.01 Morbid (severe) obesity due to excess calories; Z68.39 Body mass index [BMI] 39.0-39.9, adult; Z87.442 Personal history of urinary calculi; Z91.19 Patient's noncompliance with other medical treatment and regimen; Z72.0 Tobacco use; Z83.3 Family history of diabetes mellitus